=== PATIENT | male | born 1965 | race Caucasian/White ===

== ENCOUNTER 2018-05-17 16:38 | Inpatient (IN) | payer BC, SELFPAY ==
[2018-05-17] VITALS (24 sets, daily range): BP systolic 126–140; BP diastolic 81–89; PULSE 61–89; RESP 11–20; TEMP 37.4–38.3; O2SAT 91–97
[2018-05-17] MEDS: Normal Saline 1,000 ML 1000 ML IV ×2 (17:15→19:45)
[2018-05-17] MEDS: Normal Saline Flush 10 ML SYR IVP ×2 (17:15→22:03)
--- NOTE | 2018-05-17 17:16 | DI.CT_ITS ---
SYMPTOM/DIAGNOSIS: PAIN IN EPIGASTRIC AND RUQ CT ABDOMEN AND PELVIS: CT scan of the abdomen and pelvis was performed following the uneventful administration of intravenous contrast material. No priors for comparison. The visualized lung bases are free of acute infiltrates. There is diffuse decreased attenuation of the liver consistent with fatty infiltration. No suspicious hepatic mass is seen. The patient is status post cholecystectomy. No biliary ductal dilatation is present. The portal and superior mesenteric veins are patent. There is mild increased attenuation surrounding the head of the pancreas and proximal duodenum There is mild prominence of the pancreatic duct in the proximal pancreas. No pancreatic mass is seen. No peripancreatic fluid collections are appreciated. The spleen and adrenal glands are unremarkable The kidneys show normal and symmetric enhancement. There are left renal cysts. No calculi are identified. The urinary bladder is markedly distended. There is mild dilatation of the collecting system likely reflecting the enlarged urinary bladder. No definite hydronephrosis is seen. The reproductive organs are grossly unremarkable. The abdominal aorta is of normal caliber. No significant or pelvic adenopathy, ascites, or pneumoperitoneum is present. There is a moderate amount of retained stool throughout the colon. No evidence of bowel obstruction seen. No findings to suggest an acute appendicitis are present. The bones are intact. IMPRESSION: 1. Mild edema seen surrounding the pancreatic head and proximal duodenum, likely reflecting acute pancreatitis. Please correlate clinically. 2. Marked distension of the urinary bladder without orly hydronephrosis 3. Thickening of the wall of the distal esophagus. Esophagitis cannot be excluded. This may also reflect a decompressed distal esophagus. Please correlate clinically. 4. Mild prominence of the distal esophageal wall. Esophagitis vs decompressed esophagus.
--- NOTE | 2018-05-17 17:16 | DI.CT_ITS ---
SYMPTOM/DIAGNOSIS: ALTERED MENTATION CT BRAIN: Noncontrast examination. No priors. There is a normal haas/white matter differentiation. The ventricles are intact. The basilar cisterns are patent. No evidence of an acute infarct, intracranial hemorrhage, midline shift or mass effect is identified. There is mild mucosal thickening in the ethmoid air cells and sphenoid sinuses. No fluid levels are seen. The mastoid air cells are well pneumatized. The calvarium is intact. IMPRESSION: No acute intracranial process.
--- NOTE | 2018-05-17 17:19 | W.ED.GENAD ---
Discharge Plan Disposition Patient Disposition: [facility] INPATIENT Condition: Serious Discharge Details Chief Complaint: OD/Poison Clinical Impression: Acute alcohol intoxication, Acute pancreatitis Primary Care Provider: Alexis Carlos ED Provider: Hayder Larsen Home Meds and New Rx's Prescriptions: No Action zolpidem 10 MG tablet 10 mg PO HS PRN RF: 0 montelukast 10 MG tablet 10 mg PO RF: 0 testosterone cypionate 200 MG/1 ML oil 200 mg IM RF: 0 fluticasone 16 GM spray,suspension 16 gm NS RF: 0 buprenorphine-naloxone 1 EACH tablet, sublingual 1 ea Sublingual DAILY RF: 0 finasteride 5 MG tablet 5 mg PO DAILY Qty: 30 RF: 12 tamsulosin [Flomax] 0.4 MG capsule 0.8 mg PO DAILY RF: 0 pantoprazole [Protonix] 20 MG tablet,delayed release (DR/EC) 20 mg DAILY RF: 0 prednisone 20 MG tablet 60 mg PO DAILY 5 Days RF: 0 bupropion HCl [Wellbutrin XL] 150 mg Tablet Extended Release 24 Hr 150 mg PO DAILY RF: 0 Medical Decision Making 17:23 --83-year-old male with altered mental status after being found in [facility]. Arrives with ems. normothermic. Initially resistant to assessment and treatment. Now agreeable. Patient admits to consuming heavy amounts of alcohol today and notes binging recently over the past week. Suspect alcohol intoxication. No signs of trauma. Patient is tender in his upper abdomen. Consider acute surgical pathology. Unreliable exam and history given his current status. Plan to CT abdomen pelvis to assess for surgical pathology. Plan to CT head to assess for acute life-threatening hemorrhage. Will give IVF bolus, thiamine 100mg IV, and pepcid 20mg IV. 18:33 -- Labs reviewed: lipase elevated. AST and ALT elevated. I alerted hospitalist to likely admission pending CT. 20:35 --CT of the abdomen pelvis interpreted by radiology: 1. Mild edema surrounding the pancreatic head and distal duodenum, likely a mild pancreatitis. 2. Mild prominence of the urinary collecting systems in the setting of a distended urinary bladder with no orly hydronephrosis. 3. Question mild prominence of the distal esophageal wall. Decompressed distal esophagus. Could relate to a mild esophagitis especially of vomiting has been present. Patient is making urine. Will give ativan 0.5 mg IV for sleep and anxiety. Spoke with Dr. Tijerina who will admit. Care transitioned to Dr. Tijerina. HPI General Mode of arrival: EMS. Date/Time Provider Initiated Documentation: 05/17/18 16:38. Limitations to Documentation: altered mental status. Information obtained by: patient, family () and EMS. HPI Narrative: 53-year-old male with history of alcohol abuse, presents with altered mental status. History and review of systems Limited as patient is altered. Per the patient's , who called the emergency department, patient left his home to purchase alcohol this morning around 11 AM and then did not return. Patient was found altered in the [place]. He admits to consuming wine and heavy amounts today. notes that he has been binging over the past 7 days on vodka. Patient denies trauma. He denies pain. Related Data Home Medications Medication Instructions Recorded Confirmed zolpidem 10 mg PO HS PRN 10/24/14 11/29/17 buprenorphine-naloxone 1 ea SUBLINGUAL DAILY 11/04/16 05/17/18 fluticasone 16 gm NS script 11/04/16 montelukast 10 mg PO 11/04/16 testosterone cypionate 200 mg IM vial 11/04/16 finasteride 5 mg PO DAILY #30 tab-cap 12/16/16 tamsulosin [Flomax] 0.8 mg PO DAILY tab-cap 12/16/16 11/29/17 pantoprazole [Protonix] 20 mg DAILY 11/29/17 11/29/17 prednisone 60 mg PO DAILY 5 Days tab 11/29/17 bupropion HCl [Wellbutrin XL] 150 mg PO DAILY 05/17/18 05/17/18 Previous Rx's Medication Instructions Recorded prednisone 60 mg PO DAILY 5 Days tab 11/29/17 Allergies Allergy/AdvReac Type Severity Reaction Status Date / Time buspirone HCl [From BuSpar] AdvReac Intermediate Dizziness/L Unverified 12/16/16 09:34 ightheade codeine AdvReac Intermediate Nausea Unverified 12/16/16 09:34 eviromental Allergy Severe congestion Uncoded 11/14/14 07:32 General Stated Complaint: OD/Poison STEPHANIE: 2 Review of Systems Review of Systems Unobtainable due to mental status PFS Social History Smoking/Tobacco Use Status: Former Tobacco Use Exam Const General: uncooperative and no acute distress Nutritional Appearance: well nourished Orientation: alert and confused Limitations: altered mental status [facility] Head: normocephalic and atraumatic Mouth: moist mucous membranes Eyes Conjunctivae: normal conjunctivae Sclera: normal sclerae Pupils: PERRL Neck Neck: trachea midline and supple Resp Auscultation: clear to auscultation bilaterally, no rales, no rhonchi and no wheezes Cardio Jugular venous pressure: no JVD Rate: regular rate and not tachycardic Rhythm: regular rhythm GI Palpation: soft, not firm, no guarding, no masses, not rigid and tender in the epigastrum and in the LUQ Skin General skin exam: no rashes or lesions noted Neuro General: alert, awake and tone normal Extrem General: no edema Psych Speech and Movement: slurred speech Affect: labile affect Insight: poor Judgment: poor Course Temperature Source Skin 05/17/18 16:36 Oxygen Delivery Method Room Air 05/17/18 16:36 Oxygen Flow Rate 0 05/17/18 16:36 Comment 05/17/18 16:36
--- NOTE | 2018-05-17 17:25 | ED.GENADUL_ITS ---
Discharge Plan Disposition Patient Disposition: [facility] INPATIENT Condition: Serious Discharge Details Chief Complaint: OD/Poison Clinical Impression: Acute alcohol intoxication, Acute pancreatitis Primary Care Provider: Alexis Carlos ED Provider: Hayder Larsen Home Meds and New Rx's Prescriptions: No Action zolpidem 10 MG tablet 10 mg PO HS PRN RF: 0 montelukast 10 MG tablet 10 mg PO RF: 0 testosterone cypionate 200 MG/1 ML oil 200 mg IM RF: 0 fluticasone 16 GM spray,suspension 16 gm NS RF: 0 buprenorphine-naloxone 1 EACH tablet, sublingual 1 ea Sublingual DAILY RF: 0 finasteride 5 MG tablet 5 mg PO DAILY Qty: 30 RF: 12 tamsulosin [Flomax] 0.4 MG capsule 0.8 mg PO DAILY RF: 0 pantoprazole [Protonix] 20 MG tablet,delayed release (DR/EC) 20 mg DAILY RF: 0 prednisone 20 MG tablet 60 mg PO DAILY 5 Days RF: 0 bupropion HCl [Wellbutrin XL] 150 mg Tablet Extended Release 24 Hr 150 mg PO DAILY RF: 0 Medical Decision Making 17:23 --83-year-old male with altered mental status after being found in [facility]. Arrives with ems. normothermic. Initially resistant to assessment and treatment. Now agreeable. Patient admits to consuming heavy amounts of alcohol today and notes binging recently over the past week. Suspect alcohol intoxication. No signs of trauma. Patient is tender in his upper abdomen. Consider acute surgical pathology. Unreliable exam and history given his current status. Plan to CT abdomen pelvis to assess for surgical pathology. Plan to CT head to assess for acute life-threatening hemorrhage. Will give IVF bolus, thiamine 100mg IV, and pepcid 20mg IV. 18:33 -- Labs reviewed: lipase elevated. AST and ALT elevated. I alerted hospitalist to likely admission pending CT. 20:35 --CT of the abdomen pelvis interpreted by radiology: 1. Mild edema surrounding the pancreatic head and distal duodenum, likely a mild pancreatitis. 2. Mild prominence of the urinary collecting systems in the setting of a distended urinary bladder with no orly hydronephrosis. 3. Question mild prominence of the distal esophageal wall. Decompressed distal esophagus. Could relate to a mild esophagitis especially of vomiting has been present. Patient is making urine. Will give ativan 0.5 mg IV for sleep and anxiety. Spoke with Dr. Tijerina who will admit. Care transitioned to Dr. Tijerina. HPI General Mode of arrival: EMS . Date/Time Provider Initiated Documentation: 05/17/18 16:38 . Limitations to Documentation: altered mental status . Information obtained by: patient, family () and EMS . HPI Narrative: 53-year-old male with history of alcohol abuse, presents with altered mental status. History and review of systems Limited as patient is altered. Per the patient's , who called the emergency department, patient left his home to purchase alcohol this morning around 11 AM and then did not return. Patient was found altered in the [place]. He admits to consuming wine and heavy amounts today. notes that he has been binging over the past 7 days on vodka. Patient denies trauma. He denies pain. Related Data Home Medications Medication Instructions Recorded Confirmed zolpidem 10 mg PO HS PRN 10/24/14 11/29/17 buprenorphine-naloxone 1 ea SUBLINGUAL DAILY 11/04/16 05/17/18 fluticasone 16 gm NS script 11/04/16 montelukast 10 mg PO 11/04/16 testosterone cypionate 200 mg IM vial 11/04/16 finasteride 5 mg PO DAILY #30 tab-cap 12/16/16 tamsulosin [Flomax] 0.8 mg PO DAILY tab-cap 12/16/16 11/29/17 pantoprazole [Protonix] 20 mg DAILY 11/29/17 11/29/17 prednisone 60 mg PO DAILY 5 Days tab 11/29/17 bupropion HCl [Wellbutrin XL] 150 mg PO DAILY 05/17/18 05/17/18 Previous Rx's Medication Instructions Recorded prednisone 60 mg PO DAILY 5 Days tab 11/29/17 Allergies Allergy/AdvReac Type Severity Reaction Status Date / Time buspirone HCl [From BuSpar] AdvReac Intermediate Dizziness/L Unverified 09:34 ightheade codeine AdvReac Intermediate Nausea Unverified 12/16/16 09:34 eviromental Allergy Severe congestion Uncoded 11/14/14 07:32 General Stated Complaint: OD/Poison STEPHANIE: 2 Review of Systems Review of Systems Unobtainable due to mental status PFS Social History Smoking/Tobacco Use Status: Former Tobacco Use Exam Const General: uncooperative and no acute distress Nutritional Appearance: well nourished Orientation: alert and confused Limitations: altered mental status [facility] Head: normocephalic and atraumatic Mouth: moist mucous membranes Eyes Conjunctivae: normal conjunctivae Sclera: normal sclerae Pupils: PERRL Neck Neck: trachea midline and supple Resp Auscultation: clear to auscultation bilaterally, no rales, no rhonchi and no wheezes Cardio Jugular venous pressure: no JVD Rate: regular rate and not tachycardic Rhythm: regular rhythm GI Palpation: soft, not firm, no guarding, no masses, not rigid and tender in the epigastrum and in the LUQ Skin General skin exam: no rashes or lesions noted Neuro General: alert, awake and tone normal Extrem General: no edema Psych Speech and Movement: slurred speech Affect: labile affect Insight: poor Judgment: poor Course Temperature Source Skin 05/17/18 16:36 Oxygen Delivery Method Room Air 05/17/18 16:36 Oxygen Flow Rate 0 05/17/18 16:36 Comment 05/17/18 16:36
[2018-05-17] MEDS: Thiamine 200 MG/2 ML VIAL 100 MG IV (17:26)
[2018-05-17 17:28] LABS: Abs Immature Grans 0.02 k/cumm (0.0-0.09); Absolute Basophil Count 0.02 k/cumm (0.0-0.2); Absolute Eosinophil Count 0.05 k/cumm (0.0-0.7); Absolute Lymphocyte Count 2.33 k/cumm (1.2-3.4); Absolute Monocyte Count 0.51 k/cumm (0.11-0.7); Absolute Neutrophil Count 4.83 k/cumm (1.2-6.7); Basophils % 0.3; Eosinophils % 0.6; HCT 47.9 % (40.0-50.0); HGB 16.3 g/dL (13.5-17.5); Immature Grans % 0.3; Mean Corpuscular Hemoglobin 30.5 pg (27.0-33.0); Mean Corpuscular Volume 89.7 fL (80-95); Mean Platelet Volume 10.3 fL (8.0-11.0); Monocytes % 6.6; Neutrophils % 62.2; Platelet Count 233 x1000/uL (130-400); RBC 5.34 m/cumm (4.50-6.00); RBC Distribution Width 14.2 % (11.8-14.1); White Blood Cell Count 7.76 k/cumm (4.4-10.8)
[2018-05-17] MEDS: FAMOTIDINE 20 MG/50 ML BAG 100 MG IVPB (17:32)
[2018-05-17 18:02] LABS: ALT 240 U/L (12-78); AST 544 U/L (15-37); Albumin 3.7 g/dL (3.4-5.0); Alkaline Phosphatase 145 U/L (46-116); Anion Gap 12.8 mmol/L (3-11); BUN 10 mg/dL (7-18); Bilirubin, Total 0.7 mg/dL (0.2-1.0); CO2 26.2 mmol/L (21.0-32.0); CREATININE 0.79 mg/dL (0.70-1.30); Calcium 8.7 mg/dL (8.5-10.1); Chloride 103 mmol/L (98-107); Glucose 106 mg/dL (70-100); Potassium 4.3 mmol/L (3.5-5.1); Sodium 142 mmol/L (136-145); TSH (W/Ref FT4) 1.63 uIU/mL (0.358-3.74); Total Protein 7.7 g/dL (6.4-8.2)
[2018-05-17 18:06] LABS: Lipase 5671 U/L (73-393)
[2018-05-17 18:31] LABS: Bilirubin Negative (Negative); Blood Small (Negative); Clarity Clear; Glucose Negative (Negative); Ketones Negative (Negative); Leukocyte Esterase Negative (Negative); Nitrite Negative (Negative); Specific Gravity <= 1.005 (1.005-1.025)
[2018-05-17 18:40] LABS: Bacteria Negative HPF (Negative); C & S Indicated? No; Casts Negative LPF (Negative); Crystals Negative HPF (Negative); Epithelial Cells Negative HPF (Negative); Mucus Negative (Negative); Other Cells Negative (Negative); RBC 0-2 (0-2); WBC Negative HPF (0-5)
[2018-05-17 18:48] LABS: Tricyclic Antidepressants Negative (Negative)
[2018-05-17 18:51] LABS: *AMPHETAMINES SCREEN URINE Negative (Negative); *BARBITURATES SCREEN URINE Negative (Negative); *BENZODIAZEPINES SCREEN URINE Negative (Negative); Cannabinoids THC Negative (Negative); Cocaine Screen,Urine Negative (Negative); METHADONE URINE SCREEN Negative (Negative); OPIATES URINE SCREEN Negative (Negative)
--- NOTE | 2018-05-17 19:44 | DI.VRAD_ITS ---
EXAM: CT Head Without Intravenous Contrast EXAM DATE/TIME: 05/17/2018 5:18 PM CLINICAL HISTORY: 53 years old, male; Signs and symptoms; Altered mental status/memory loss; Patient HX: Altered mentation TECHNIQUE: Axial computed tomography images of the head/brain without intravenous contrast. Coronal and sagittal reformatted images were created and reviewed. COMPARISON: No relevant prior studies available. FINDINGS: Brain: No hemorrhage. No significant white matter disease. No edema. Ventricles: No ventriculomegaly. Bones/joints: No acute fracture. Sinuses: Minimal mucosal thickening in the ethmoid air cells. Mastoid air cells: No mastoid effusion. Soft tissues: No suspicious lesions. IMPRESSION: 1. No acute intracranial findings. 2. Minimal mucosal thickening in the ethmoid air cells. Dictated and Authenticated by: Chelsy Cha MD. Ordering:TONY GRANT MD
--- NOTE | 2018-05-17 19:50 | DI.VRAD_ITS ---
EXAM: CT Abdomen and Pelvis With Intravenous Contrast EXAM DATE/TIME: 05/17/2018 5:18 PM CLINICAL HISTORY: 53 years old, male; Pain; Abdominal pain; Localized; Right upper quadrant (ruq); Patient HX: Pain in epigastric and ruq TECHNIQUE: Axial computed tomography images of the abdomen and pelvis with intravenous contrast. Coronal and sagittal reformatted images were created and reviewed. COMPARISON: No relevant prior studies available. FINDINGS: Lower thorax: Question mild prominence of the distal esophageal wall. Decompressed distal esophagus. ABDOMEN: Liver: Hepatic hypodensity, too small to characterize, likely a cyst. No hepatic masses. Mildly fatty liver is suggested. Gallbladder and bile ducts: Cholecystectomy. Pancreas: Mild edema surrounding the pancreatic head and distal duodenum. Minimal prominence of the pancreatic duct in the proximal pancreas. No pancreatic masses are seen. No peripancreatic collections. Spleen: No splenomegaly or focal lesions. Adrenals: No mass. Kidneys and ureters: Benign-appearing left renal cysts. No renal masses or hydronephrosis bilaterally. Mild prominence of the urinary collecting systems in the setting of a distended urinary bladder with no orly hydronephrosis. Stomach and bowel: Mild edema surrounding the distal duodenum as described above. No pathologic duodenal dilation. No significant duodenal wall thickening. No focal pathology in the small bowel. No acute pathology in the colon. Appendix: No evidence of appendicitis. Retroperitoneal space: Minimal edema layers along the upper retroperitoneum. PELVIS: Bladder: The urinary bladder is distended. Reproductive: Unremarkable as visualized. ABDOMEN and PELVIS: Intraperitoneal space: Normal. No free air. No significant fluid collection. Bones/joints: Degenerative changes in the spine. Soft tissues: No suspicious lesions. Vasculature: Normal. No abdominal aortic aneurysm. Lymph nodes: Normal. No enlarged lymph nodes. IMPRESSION: 1. Mild edema surrounding the pancreatic head and distal duodenum, likely a mild pancreatitis. 2. Mild prominence of the urinary collecting systems in the setting of a distended urinary bladder with no orly hydronephrosis. 3. Question mild prominence of the distal esophageal wall. Decompressed distal esophagus. Could relate to a mild esophagitis especially of vomiting has been present. Dictated and Authenticated by: Chelsy Cha MD. Ordering:TONY GRANT MD
--- NOTE | 2018-05-17 20:52 | W.PM.HP.N ---
Date of service: 05/17/18 Time of Service: 20:53 Assessment and Plan (1) Acute alcoholic pancreatitis: Current visit: Yes Status: Acute Keep NPO; give generous iv fluids; begin CIWA protocol to monitor and treat for any signs of alcohol withdrawal; give iv thiamine/MVS via banana bag; give parenteral antiemetics and analgesics; treat w/ iv PPI (he has hx of GERD and CT of abdomen suggested duodenitis and esophagitis; patient had been trying to remain intoxicated to kill his epigastric abdominal pain; if his pain does not resolve then he may need an EGD to rule out PUD. monitor daily labs including CMP, lipase and CBC. (2) Transaminitis: Current visit: Yes Status: Acute treat pancreatitis as above, monitor LFT daily until normal, avoid hepatotoxins History of Present Illness Chief Complaint: intoxicated, found in [place] Narrative: 53 year old male w/ PMH of alcohol and narcotic abuse who has been on suboxone therapy has been drinking heavily for the past week according to the emergency room staff who obtained his history from his . The patient left home around 11 a.m. to purchase alcohol but did not return. When she went to find him [facility] with altered mental status and suspected of being intoxicated. He was brought by EMS to the emergency room at [facility] where workup revealed that he has acute pancreatitis w/ lipase of 5671 and acute alcoholic transaminitis w/ An AST of 544 and an ALT of 240 and alkaline phosphatase of 145. He has a mildly elevated anion gap of 12.8 and is acutely intoxicated with a blood alcohol level of 382. Rest of his urine toxicology screen was negative. His urinalysis was unremarkable. CT of his head without contrast showed no acute intracranial findings. CT of his abdomen and pelvis with IV contrast demonstrate mild edema surrounding the pancreatic head and distal duodenum consistent with pancreatitis. Mild prominence of his urinary collecting system with a distended urinary bladder but no orly hydronephrosis. Questionable mild prominence of the distal esophageal wall possibly due to mild esophagitis. Treatment included 100 mg of thiamine IV as well as IV fluid boluses of normal saline times 2 L as well as 20 mg of IV Pepcid.Patient is now admitted to the medical/surgical floor on telemetry for treatment of acute alcoholic pancreatitis and transaminitis as well as acute alcohol intoxication. He will be monitored for signs of alcohol withdrawal and treated appropriately according CIWA protocol per [facility] alcohol withdrawal protocol. Review of Systems Constitutional Reports system reviewed and no additional complaints, except as docu Cardiovascular Reports system reviewed and no additional complaints, except as docu Respiratory Reports system reviewed and no additional complaints, except as docu Gastrointestinal Reports as per HPI Genitourinary Reports system reviewed and no additional complaints, except as docu Musculoskeletal Reports system reviewed and no additional complaints, except as docu Neurologic Reports system reviewed and no additional complaints, except as docu Psychiatric Reports anxiety and Reports irritability Hematologic/Lymphatic Reports system reviewed and no additional complaints, except as docu [facility] Medical History GERD (gastroesophageal reflux disease) (Chronic) Acute alcoholic pancreatitis (Acute ~05/2018) Alcoholism (Chronic) History of narcotic addiction (Chronic) Social History marital status: current occupational status: employed 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, [employer] Smoking/Tobacco Use Status: Former Tobacco Use alcohol intake: current alcohol intake frequency: 3 or more drinks per day Alcohol type: wine and hard liquor details: prior abstinence x 3 yrs; last time he was abstinent was 2 yr ago Surgical History History of cholecystectomy (Resolved) Meds Home Medications Medication Instructions Recorded Confirmed Type zolpidem 10 mg PO HS PRN 10/24/14 11/29/17 History fluticasone 16 gm NS script 11/04/16 History montelukast 10 mg PO 11/04/16 History testosterone cypionate 200 mg IM vial 11/04/16 History finasteride 5 mg PO DAILY #30 tab-cap 12/16/16 History tamsulosin [Flomax] 0.8 mg PO DAILY tab-cap 12/16/16 11/29/17 History pantoprazole [Protonix] 20 mg DAILY 11/29/17 11/29/17 History prednisone 60 mg PO DAILY 5 Days tab 11/29/17 Rx bupropion HCl [Wellbutrin XL] 150 mg PO DAILY 05/17/18 05/17/18 History buprenorphine-naloxone [Suboxone] 8 tab SUBLINGUAL DAILY 05/18/18 05/18/18 History Allergies Allergy/AdvReac Type Severity Reaction Status Date / Time buspirone HCl [From BuSpar] AdvReac Intermediate Dizziness/L Unverified 12/16/16 09:34 ightheade codeine AdvReac Intermediate Nausea Unverified 12/16/16 09:34 eviromental Allergy Severe congestion Uncoded 11/14/14 07:32 Exam Const General: cooperative, well developed and intoxicated appearing Nutritional Appearance: obese Orientation: alert, awake and oriented x3 HENMT Head: normal to inspection, normocephalic and atraumatic Ears: hearing grossly normal bilaterally General nose exam: external nose normal Face and sinus: normal facial exam Eyes General: appearance normal, both eyes and all related structures Periorbital: periorbital findings normal Eyelids: eyelids normal Sclera: sclerae normal Cornea: corneas normal Pupils: PERRL EOM: EOM intact bilaterally Neck Neck: normal visual inspection, full ROM, no lymphadenopathy, trachea midline and supple Carotids: normal carotid upstroke Lymphatic: no lymphadenopathy noted Resp Effort & Inspection: normal respiratory effort and able to speak in complete sentences Auscultation: clear to auscultation bilaterally Cardio Jugular venous pressure: no JVD Palpation: normal PMI Rate: regular rate Rhythm: regular rhythm Heart Sounds: S1 normal, S2 normal, normal, physiologic split S2, no gallops, no murmurs and no rubs Bruits: no abdominal aortic bruits and no carotid bruits GI Inspection: normal to inspection and obesity Palpation: soft and tender in the epigastrum, in the LUQ and in the RUQ Percussion: normal to percussion Auscultation: normal bowel sounds Skin General skin exam: no rashes or lesions noted Trauma: no lacerations or abrasions Wounds: no wounds Neuro General: alert, awake, oriented x3, moves all extremities, normal light touch, pain and propioception and no focal motor deficits Cognition: normal cognition Speech: speech normal Motor: muscle tone normal throughout, strength 5/5 throughout and no movement abnormalities noted Sensory Exam: no sensory deficits noted Extrem General: normal to inspection, full ROM, normal capillary refill, no joint enlargement, no clubbing, cyanosis or edema and no pedal edema Psych Appearance: disheveled Mental Status: mental status grossly normal Speech and Movement: speech and movement normal Mood: anxious mood Affect: sad Attitude: cooperative Thought Process: normal Thought Content: normal Insight: insight good Judgment: fair Results Imaging Abdomen CT scan report/results: report reviewed (MPRESSION: 1. Mild edema surrounding the pancreatic head and distal duodenum, likely a mild pancreatitis. 2. Mild prominence of the urinary collecting systems in the setting of a distended urinary bladder with no orly hydronephrosis. 3. Question mild prominence of the distal esophageal wall. D) Imaging Studies: Non-contrast CT scan of head showed no acute intracranial findings Labs : 05/18/18 06:29 05/18/18 06:29 Laboratory Results - last 24 hr 05/17/18 05/17/18 05/17/18 17:15 17:15 17:15 WBC 7.76 RBC 5.34 Hgb 16.3 Hct 47.9 MCV 89.7 MCH 30.5 MCHC 34.0 RDW 14.2 H Plt Count 233 MPV 10.3 Immature Gran % 0.3 Neutrophils % 62.2 Lymphocytes % 30.0 Monocytes % 6.6 Eosinophils % 0.6 Basophils % 0.3 Absolute Neutrophils 4.83 Absolute Lymphocytes 2.33 Absolute Monocytes 0.51 Absolute Eosinophils 0.05 Absolute Basophils 0.02 Sodium 142 Potassium 4.3 Chloride 103 Carbon Dioxide 26.2 Anion Gap 12.8 H BUN 10 Creatinine 0.79 Estimated GFR/1.73 m2 >= 60.00 Glucose 106 H Calcium 8.7 Total Bilirubin 0.7 AST 544 H ALT 240 H Alkaline Phosphatase 145 H Total Protein 7.7 Albumin 3.7 Lipase 5671 H TSH 1.63 Urine Color Urine Clarity Urine pH Ur Specific [place] Urine Protein Urine Ketones Urine Blood Urine Nitrite Urine Bilirubin Urine Urobilinogen Ur Leukocyte Esterase Urine RBC Urine WBC Ur Epithelial Cells Urine Crystals Urine Bacteria Urine Casts Urine Mucus Urine Other Ur Culture Indicated? Urine Glucose Urine Opiates Screen Urine Methadone Screen Ur Barbiturates Screen Ur Tricyclics Screen Ur Amphetamines Screen U Benzodiazepines Scrn Urine Cocaine Screen Ur THC Screen Ethyl Alcohol 382.0 05/17/18 05/17/18 17:45 17:45 WBC RBC Hgb Hct MCV MCH MCHC RDW Plt Count MPV Immature Gran % Neutrophils % Lymphocytes % Monocytes % Eosinophils % Basophils % Absolute Neutrophils Absolute Lymphocytes Absolute Monocytes Absolute Eosinophils Absolute Basophils Sodium Potassium Chloride Carbon Dioxide Anion Gap BUN Creatinine Estimated GFR/1.73 m2 Glucose Calcium Total Bilirubin AST ALT Alkaline Phosphatase Total Protein Albumin Lipase TSH Urine Color Yellow Urine Clarity Clear Urine pH 6.0 Ur Specific [place] <= 1.005 Urine Protein Negative Urine Ketones Negative Urine Blood Small H Urine Nitrite Negative Urine Bilirubin Negative Urine Urobilinogen 1.0 H Ur Leukocyte Esterase Negative Urine RBC 0-2 Urine WBC Negative Ur Epithelial Cells Negative Urine Crystals Negative Urine Bacteria Negative Urine Casts Negative Urine Mucus Negative Urine Other Negative Ur Culture Indicated? No Urine Glucose Negative Urine Opiates Screen Negative Urine Methadone Screen Negative Ur Barbiturates Screen Negative Ur Tricyclics Screen Negative Ur Amphetamines Screen Negative U Benzodiazepines Scrn Negative Urine Cocaine Screen Negative Ur THC Screen Negative Ethyl Alcohol Last Vital Signs Temp 37.8 C H 05/17/18 19:19 Pulse 73 05/17/18 19:31 Resp 18 05/17/18 20:20 BP 134/83 05/17/18 19:31 Pulse Ox 97 05/17/18 20:00
[2018-05-17] MEDS: LORazepam 2 MG/ML VIAL 0.5 MG IVP (21:37)
[2018-05-17] MEDS: Lactated Ringers 1,000 ML 250 ML IV (21:39)
[2018-05-17] MEDS: MORPHine 10 MG/ML VIAL IVP (22:03)
[2018-05-17] MEDS: Pantoprazole 40 MG VIAL IVP (22:04)
[2018-05-17] MEDS: Enoxaparin 40 MG/0.4 ML SYR SC (22:04)
[2018-05-17 22:10] LABS: Troponin I < 0.02 ng/mL (0.00-0.06)
[2018-05-17] MEDS: LORazepam 1 MG TAB PO/SL (22:51)
[2018-05-18] VITALS (41 sets, daily range): BP systolic 111–146; BP diastolic 62–99; PULSE 56–89; RESP 14–26; TEMP 36–37.8; O2SAT 95–97
[2018-05-18] MEDS: Normal Saline Flush 10 ML SYR IVP ×9 (00:13→22:05)
[2018-05-18 01:00] LABS: Troponin I < 0.02 ng/mL (0.00-0.06)
[2018-05-18] MEDS: Lactated Ringers 1,000 ML 250 ML IV ×2 (01:49→06:00)
[2018-05-18] MEDS: LORazepam 1 MG TAB PO/SL ×5 (03:20→20:01)
[2018-05-18] MEDS: MORPHine 10 MG/ML VIAL IVP (05:59)
[2018-05-18 07:09] LABS: Abs Immature Grans 0.01 k/cumm (0.0-0.09); Absolute Basophil Count 0.01 k/cumm (0.0-0.2); Absolute Eosinophil Count 0.07 k/cumm (0.0-0.7); Absolute Lymphocyte Count 1.43 k/cumm (1.2-3.4); Absolute Monocyte Count 0.27 k/cumm (0.11-0.7); Absolute Neutrophil Count 4.01 k/cumm (1.2-6.7); Basophils % 0.2; Eosinophils % 1.2; HGB 13.2 g/dL (13.5-17.5); Immature Grans % 0.2; Lymphocytes % 24.7; Mean Corp. HGB Concentration 33.8 g/dL (32.0-36.0); Mean Corpuscular Hemoglobin 31.1 pg (27.0-33.0); Mean Corpuscular Volume 91.8 fL (80-95); Mean Platelet Volume 10.5 fL (8.0-11.0); Monocytes % 4.7; Platelet Count 155 x1000/uL (130-400); RBC 4.25 m/cumm (4.50-6.00)
[2018-05-18 07:24] LABS: ETHANOL BLOOD 28.9 mg/dL (<3)
[2018-05-18 07:27] LABS: ALT 141 U/L (12-78); AST 114 U/L (15-37); Albumin 3.2 g/dL (3.4-5.0); Alkaline Phosphatase 100 U/L (46-116); Anion Gap 13.4 mmol/L (3-11); BUN 10 mg/dL (7-18); Bilirubin, Total 1.2 mg/dL (0.2-1.0); CO2 25.6 mmol/L (21.0-32.0); CREATININE 0.85 mg/dL (0.70-1.30); Calcium 7.8 mg/dL (8.5-10.1); Chloride 104 mmol/L (98-107); Glucose 71 mg/dL (70-100); Lipase 925 U/L (73-393); Magnesium 1.4 mg/dL (1.8-2.4); Potassium 3.8 mmol/L (3.5-5.1); Sodium 143 mmol/L (136-145); Troponin I < 0.02 ng/mL (0.00-0.06)
[2018-05-18 07:28] LABS: PHOSPHORUS 3.7 mg/dL (2.6-4.7)
[2018-05-18 07:57] LABS: Prothrombin Time 9.6 sec (9.3-10.8)
--- NOTE | 2018-05-18 09:52 | PHARADMIT ---
Addendum entered by Rehana Collins 05/25/18 16:44: Pharmacy Note Subjective no longer on CIWA Objective BP-144/94 other VS okay Assessment oxycodone and lorazepam discontinued, PO hydromorphone added Q2H PRN has been taking both IV and PO hydromorphone Plan continue to watch VS, labs and for med changes Original Note: Addendum entered by Jj Ferguson III 05/24/18 11:58: Pharmacy Note Subjective CIWA: 1-2 Pain:5/10 Epigastric pain continues, eating minimally. Advancing diet. MD reduced Dilaudid IV, & increasdd Oxycodone. Objective BP-168/104 I&O (- 5 Liters/36hrs) Wgt- 86.6 kg No Labs, Assessment Oxycodone to 20mg q4h prn, Dilaudid to 1mg IV .q90min prn Plan Patient to transfer to Med/Surg Original Note: Addendum entered by Jj Ferguson III 05/23/18 13:17: Pharmacy Note Subjective CIWA: 3-12 MD lowered Oxazepam to 10mg po BID. MD believes opioid withdrawal is part of ongoing abdominal pain. Diet advanced. Has some urinary obstruction,,on Flomax Objective VS-OK BP-145/93 Pain: 09/20 K+3.9 Mag-1.9 SCr-1.18 H&H-up Plts-143 Had liquid BM Assessment Lovenox held due to low Plts, Oxycodone & Dilaudid IVP for pain control. Banana bag dc'd changed to oral meds. Using TEDS & SCDs Plan Patient is wavering regarding inpatient substance abuse rehab. Original Note: Addendum entered by Jj Ferguson III 05/22/18 12:12: Pharmacy Note Subjective CIWA: 2-7, Complains of pain, wants his Suboxone Objective BP-140/108 Pain:10 Plts-122, Lytes, WBC-OK SCr-1.04 H&H-12.6/38.3 wgt-89.6 kg BM 05/21 Assessment Low PLts, Lovenox DC'd, Banana bag continues Plan changed rom Med/Surg overlfw o ICU admission. sent referral to [facility] Original Note: Addendum entered by Harper Suresh 05/21/18 10:42: Pharmacy Note Subjective pt confused upon awakening, told nurse he was leaving AMA Objective CIWA 17 this AM, AST normalized, ALT coming down Assessment Banana bag continues Plan Watch Plts, Waiting for withdrawal to wane. Original Note: Addendum entered by Jj Ferguson III 05/20/18 11:07: Pharmacy Note Subjective Patient actively undergoing ETOH withdrawal & possibly Suboxone withdrawal. MD has dc'd Morphine and replace it with Hydromorphone 1mg IV q2h prn. Nurse noted patient agitated in morning meeting. Objective CIWA-19 BP-138/91 Pain:8/10 Lytes, SCr, H&H,WBC-OK Plts-127 Wgt-89.1kg Assessment Banana Bag continues. Has Toradol IV fr additional pain control. Plan Watch Plts, Waiting for withdrawal to wane. Original Note: Addendum entered by Jj Ferguson III 05/19/18 16:45: Pharmacy Note Subjective MD notes patient is clincally worse. Pancreatitis with Alcoholic hepatitis. Epigastric pain, NPO. Objective BP-140/95 CIWA-12 Pain:7/10 SCr- 0.87 Had BM today. Assessment Suboxone on hold while on Morphine. Plan Patient will require Inpatient substance abuse Rehab upon discharge Original Note: Admission Pharmacy Clinical Review ACUTE PANCREATITIS, ACUTE ALCOHOL INTOXICATION Code Status Full Code Current Weight 90.2 kg Renally Cleared and Narrow Therapeutic Index Meds CRCL ~96ML/MIN QTc Value / Action Taken QTC 425 BP Control, Fever 111/65 MAX TEMP 38.3 NOW 37.8 Electrolytes reviewed MAG 1.4(4G MAG IV ORDERED) DVT Prophylaxis ENOXAPARIN Opiate Usage / Scheduled Bowel Regimen Ordered PRN/NO Plt/SCr for Heparin / Enoxaparin 155/0.85 INR for Warfarin 1.0 H/H stable, WBC/Bands 13.2/39.0 WBC 5.80 Antibiotic appropriateness NA Cultures and Sensitivities NA Surgical ABX d/c within 24 hr NA DM control / Insulin Dosing NA Heart Failure (Check EF%) (ALYSE's, B-Block, Diuretics) NA IV to PO Switch Home Meds Reviewed Home Meds Not Ordered zolpidem 10 mg PO HS PRN 10/24/14 [History Confirmed 05/18/18] fluticasone 16 gm NS script 11/04/16 [History] montelukast 10 mg PO 11/04/16 [History] testosterone cypionate 200 mg IM vial 11/04/16 [History] finasteride 5 mg PO DAILY #30 tab-cap 12/16/16 [History] tamsulosin [Flomax] 0.8 mg PO DAILY tab-cap 12/16/16 prednisone 60 mg PO DAILY 5 Days tab 11/29/17 [Rx] bupropion HCl [Wellbutrin XL] 150 mg PO DAILY 05/17/18 buprenorphine-naloxone [Suboxone] 8 tab SUBLINGUAL DAILY 05/18/18 Comments CIWA ORDERED, BANANA BAG DAILY
[2018-05-18] MEDS: MAGNESIUM SULFATE 4 GM/100 ML BAG IVPB (10:06)
--- NOTE | 2018-05-18 11:50 | PDOC.CMIN ---
- If Service Date Differs Date of service: 05/18/18 Time of Service: 11:51 Care Management Initial Assess REASON FOR HOSPITALIZATION:: Acute pancreatitis, acute etoh withdrawal PAST MEDICAL HISTORY/PAST SURGICAL HISTORY:: Alcoholism, substance abuse, GERD. Surgical history cholecystectomy. 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 He has two grown daughter one lives in [place] the other recently moved to [place]. Danie identifies his support network as his spouse Melody, therapist Danie Gama, and as his primary care provider. He states he has a sponser through AA which he has not reached out to. He has been to inpatient rehab in the past for etoh. CURRENT FUNCTIONAL STATUS:: Danie is engaged during assessment. He states that this bout of pancreatitis has scared him and he would like to stop using alcohol. He would like resources r/t inpatient rehab however would like to only spend a week. He states that he has done this before and is not sure if he will learn anything he new. He states his is telling him he has to go to a rehab for detox. CM reviewed eco map with Danie and he is able to identify community supports. He does have a new therpaist, he feels supported by his primary care, he is attempting to obtain medical cannabis for PTSD. Danie is able to identify his resources he is able to attend an AA meeting. CM did review the importance of connecting with a sponser he can build a support network with. ADVANCE DIRECTIVES:: On file at [facility] Has patient been provided with information about the portal?: Yes Did the patient sign up for the portal?: No CODE STATUS:: Full Code INSURANCE COVERAGE / FINANCIAL ISSUES:: BCBS CURRENT HOME/COMMUNITY SERVICES/EQUIPMENT:: Therapist in the community. PRIMARY CARE PHYSICIAN:: POTENTIAL DISCHARGE NEEDS:: Follow up appointment with and referral to resources in the community for substance abuse support. CM encouraged the patient to outreach his sponser and set up appointment with is therapist as outpaitnet. PATIENT/FAMILY EDUCATION NEEDS:: Discharge education, limitations and follow up plan of care including ask me three education, and self management. ANTICIPATED BARRIERS TO DISCHARGE:: None noted at this time. TRANSPORTATION:: Transportation home with spouse at time of discharge. PLAN:: Danie is currently receiving IV fluids, and IV pain control. He is currently being assessed for alcohol withdrawal and being cared for in the ICU. He will return home when medically ready per provider with outpatient supports.
--- NOTE | 2018-05-18 12:43 | INITIAL_ITS ---
- If Service Date Differs Date of service: 05/18/18 Time of Service: 11:51 Care Management Initial Assess REASON FOR HOSPITALIZATION:: Acute pancreatitis, acute etoh withdrawal PAST MEDICAL HISTORY/PAST SURGICAL HISTORY:: Alcoholism, substance abuse, GERD. Surgical history cholecystectomy. 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. He has two grown daughter one lives in [place] the other recently moved to [place]. Danie identifies his support network as his spouse Melody, therapist Danie Gama, and as his primary care provider. He states he has a sponser through AA which he has not reached out to. He has been to inpatient rehab in the past for etoh. CURRENT FUNCTIONAL STATUS:: Danie is engaged during assessment. He states that this bout of pancreatitis has scared him and he would like to stop using alcohol. He would like resources r/t inpatient rehab however would like to only spend a week. He states that he has done this before and is not sure if he will learn anything he new. He states his is telling him he has to go to a rehab for detox. CM reviewed eco map with Danie and he is able to identify community supports. He does have a new therpaist, he feels supported by his primary care, he is attempting to obtain medical cannabis for PTSD. Danie is able to identify his resources he is able to attend an AA meeting. CM did review the importance of connecting with a sponser he can build a support network with. ADVANCE DIRECTIVES:: On file at [facility] Has patient been provided with information about the portal?: Yes Did the patient sign up for the portal?: No CODE STATUS:: Full Code INSURANCE COVERAGE / FINANCIAL ISSUES:: BCBS CURRENT HOME/COMMUNITY SERVICES/EQUIPMENT:: Therapist in the community. PRIMARY CARE PHYSICIAN:: POTENTIAL DISCHARGE NEEDS:: Follow up appointment with and referral to resources in the community for substance abuse support. CM encouraged the patient to outreach his sponser and set up appointment with is therapist as outpaitnet. PATIENT/FAMILY EDUCATION NEEDS:: Discharge education, limitations and follow up plan of care including ask me three education, and self management. ANTICIPATED BARRIERS TO DISCHARGE:: None noted at this time. TRANSPORTATION:: Transportation home with spouse at time of discharge. PLAN:: Danie is currently receiving IV fluids, and IV pain control. He is currently being assessed for alcohol withdrawal and being cared for in the ICU. He will return home when medically ready per provider with outpatient supports.
[2018-05-18] MEDS: buPROPion-XL 150 MG TABCR PO (15:57)
--- NOTE | 2018-05-18 16:00 | W.PM.PROGNOT ---
Date of Service Date of service: 05/18/18 Time of Service: 14:00 Assessment and Plan (1) Acute alcoholic pancreatitis: Current visit: Yes Status: Acute Already clinically improving. Trial clear liquids. I have made morphine 4 mg IV Q2 hrs prn rather than 4 hrs. If clears make the pain worse, the patient will let us know. (2) Alcoholic hepatitis: Current visit: Yes Status: Acute Mild (Discriminant function score 3), prognosis good. Transaminitis could also be due to pancreatitis. I counselled the patient that he absolutely must stop drinking. No role for prednisolone at this point. (3) History of narcotic addiction: Current visit: Yes Status: Chronic Suboxone on hold while the patient is on morphine. (4) Alcoholism: Current visit: Yes Status: Chronic Patient is considering substance abuse rehab. On CIWA/vitamins/thiamine here, being monitored for withdrawal. (5) GERD (gastroesophageal reflux disease): Current visit: Yes Status: Chronic PPI (6) Urinary retention: Current visit: Yes Status: Acute PVRs x 24 hours (7) Discharge planning issues: Current visit: Yes Status: Acute Patient is considering inpatient substance abuse rehab (8) DVT prophylaxis: Current visit: Yes Status: Acute lovenox Subjective Interval history since last seen: The patient is hungry and would like some soup. He continues to have significant pain, which does get better with morphine, but morphine doesn't last him the whole 4 hours. He denies any dizziness, chest pain, shortness of breath, nausea, diarrhea. He asked me to talk to his on the phone, who verbalized interest in inpatient substance abuse rehab facilities. The patient is considering it. Exam Narrative Exam Narrative: General: Very pleasant, depressed-appearing middle-aged male, sitting in bed, appears to be in pain Neurological: A&Ox3, no focal deficits, not tremulous Psychiatric: appears depressed Skin: no bruising/rashes HEENT: EOMI, MMM, no JVD Cardiovascular: RRR, no m/r/g Lungs: CTAB Gastrointestinal: abdomen soft, tender on mild palpation in epigastrium; no ascites or organomegaly Extremities: no edema/clubbing/cyanosis of BLE's Objective Objective Clinical Data: Abnormal lab results 05/17/18 05/17/18 05/17/18 Range/Units 17:15 17:15 17:15 RBC (4.50-6.00) m/cumm Hgb (13.5-17.5) g/dL Hct (40.0-50.0) % RDW 14.2 H (11.8-14.1) % Anion Gap 12.8 H (3-11) mmol/L Glucose 106 H (70-100) mg/dL Calcium (8.5-10.1) mg/dL Magnesium (1.8-2.4) mg/dL Total Bilirubin (0.2-1.0) mg/dL AST 544 H (15-37) U/L ALT 240 H (12-78) U/L Alkaline Phosphatase 145 H (46-116) U/L Total Protein (6.4-8.2) g/dL Albumin (3.4-5.0) g/dL Lipase 5671 H (73-393) U/L Urine Blood (Negative) Urine Urobilinogen (Up TO 0.2) EU/dL 05/17/18 05/18/18 05/18/18 Range/Units 17:45 06:29 06:29 RBC 4.25 L (4.50-6.00) m/cumm Hgb 13.2 L D (13.5-17.5) g/dL Hct 39.0 L (40.0-50.0) % RDW (11.8-14.1) % Anion Gap 13.4 H (3-11) mmol/L Glucose (70-100) mg/dL Calcium 7.8 L (8.5-10.1) mg/dL Magnesium 1.4 L (1.8-2.4) mg/dL Total Bilirubin 1.2 H (0.2-1.0) mg/dL AST 114 H (15-37) U/L ALT 141 H (12-78) U/L Alkaline Phosphatase (46-116) U/L Total Protein 6.0 L (6.4-8.2) g/dL Albumin 3.2 L (3.4-5.0) g/dL Lipase 925 H (73-393) U/L Urine Blood Small H (Negative) Urine Urobilinogen 1.0 H (Up TO 0.2) EU/dL Vital Signs Temperature 37.8 C H 05/18/18 07:27 Temperature Source Temporal Artery Scan 05/17/18 21:55 Pulse 64 05/18/18 10:36 Pulse Rhythm Regular 05/18/18 15:31 Pulse 69 05/18/18 14:30 Respiratory Rate 16 05/18/18 14:30 Respiratory Effort Non-Labored 05/18/18 15:31 Respiratory Depth Normal 05/18/18 15:31 Respiratory Pattern Normal 05/18/18 15:31 Blood Pressure 128/88 05/18/18 10:36 Blood Pressure Mean 97 05/18/18 10:36 Blood Pressure Position Supine 05/17/18 21:55 Pulse Oximetry 96 05/18/18 10:36 Oxygen Delivery Method Room Air 05/17/18 21:55 Oxygen Flow Rate 0 05/17/18 21:55 Pain Level 7 05/18/18 15:56 Comment 05/17/18 19:19 Intake & Output 05/17/18 05/18/18 05/18/18 23:59 11:59 23:59 Intake Total 1520 / 1520 2521.883 / 2521.883 120 / 120 Output Total 1275 / 1275 850 / 850 500 / 500 Balance 245 / 245 1671.883 / 1671.883 -380 / -380 Weight 88.8 kg 90.2 kg Intake: IV 1520 / 1520 2491.883 / 2491.883 120 / 120 Oral 30 / 30 Output: Urine 1275 / 1275 850 / 850 400 / 400 Post Void Residual 100 / 100 Other: Urine Color Light Noelle Yellow Light Noelle Urine Appearance Clear Cloudy Cloudy Urine Odor Normal Normal Comment Pt refused catheter in ED and Dr. Yanez aware per RN report. Monitor patient for adequate output Pt voided and RN scanned 10 min later with 100ml PVR Pt has been voiding in 200-300ml amounts every 1-3 hours Voiding Methods Urinal Urinal Urinal # Voids 6 Laboratory Results WBC 5.80 k/cumm (4.4-10.8) 05/18/18 06:29 RBC 4.25 m/cumm (4.50-6.00) L 05/18/18 06:29 Hgb 13.2 g/dL (13.5-17.5) L D 05/18/18 06:29 Hct 39.0 % (40.0-50.0) L 05/18/18 06:29 MCV 91.8 fL (80-95) 05/18/18 06:29 MCH 31.1 pg (27.0-33.0) 05/18/18 06: MCHC 33.8 g/dL (32.0-36.0) 05/18/18 06:29 RDW 14.0 % (11.8-14.1) 05/18/18 06:29 Plt Count 155 x1000/uL (130-400) 05/18/18 06:29 MPV 10.5 fL (8.0-11.0) 05/18/18 06:29 Immature Gran % 0.2 05/18/18 06: Neutrophils % 69.0 05/18/18 06: Lymphocytes % 24.7 05/18/18 06: Monocytes % 4.7 05/18/18 06: Eosinophils % 1.2 05/18/18 06: Basophils % 0.2 05/18/18 06:29 Absolute Neutrophils 4.01 k/cumm (1.2-6.7) 05/18/18 06:29 Absolute Lymphocytes 1.43 k/cumm (1.2-3.4) 05/18/18 06:29 Absolute Monocytes 0.27 k/cumm (0.11-0.7) 05/18/18 06:29 Absolute Eosinophils 0.07 k/cumm (0.0-0.7) 05/18/18 06:29 Absolute Basophils 0.01 k/cumm (0.0-0.2) 05/18/18 06:29 PT 9.6 sec (9.3-10.8) 05/18/18 07:38 INR 1.0 (1.0-3.5) 05/18/18 07:38 Sodium 143 mmol/L (136-145) 05/18/18 06:29 Potassium 3.8 mmol/L (3.5-5.1) 05/18/18 06:29 Chloride 104 mmol/L (98-107) 05/18/18 06:29 Carbon Dioxide 25.6 mmol/L (21.0-32.0) 05/18/18 06:29 Anion Gap 13.4 mmol/L (3-11) H 05/18/18 06:29 BUN 10 mg/dL (7-18) 05/18/18 06:29 Creatinine 0.85 mg/dL (0.70-1.30) 05/18/18 06:29 Estimated GFR/1.73 m2 >= 60.00 (mL/min/1.73m2) 05/18/18 06:29 Glucose 71 mg/dL (70-100) 05/18/18 06:29 Calcium 7.8 mg/dL (8.5-10.1) L 05/18/18 06:29 Phosphorus 3.7 mg/dL (2.6-4.7) 05/18/18 06:29 Magnesium 1.4 mg/dL (1.8-2.4) L 05/18/18 06:29 Total Bilirubin 1.2 mg/dL (0.2-1.0) H 05/18/18 06:29 AST 114 U/L (15-37) H 05/18/18 06:29 ALT 141 U/L (12-78) H 05/18/18 06:29 Alkaline Phosphatase 100 U/L (46-116) 05/18/18 06:29 Troponin I < 0.02 ng/mL (0.00-0.06) 05/18/18 06:29 Total Protein 6.0 g/dL (6.4-8.2) L 05/18/18 06:29 Albumin 3.2 g/dL (3.4-5.0) L 05/18/18 06:29 Lipase 925 U/L (73-393) H 05/18/18 06:29 TSH 1.63 uIU/mL (0.358-3.74) 05/17/18 17:15 Urine Color Yellow (Yellow) 05/17/18 17:45 Urine Clarity Clear 05/17/18 17:45 Urine pH 6.0 (5-8) 05/17/18 17:45 Ur Specific [place] <= 1.005 (1.005-1.025) 05/17/18 17:45 Urine Protein Negative mg/dL (Negative) 05/17/18 17:45 Urine Ketones Negative mg/dL (Negative) 05/17/18 17:45 Urine Blood Small (Negative) H 05/17/18 17:45 Urine Nitrite Negative (Negative) 05/17/18 17:45 Urine Bilirubin Negative (Negative) 05/17/18 17:45 Urine Urobilinogen 1.0 EU/dL (Up TO 0.2) H 05/17/18 17:45 Ur Leukocyte Esterase Negative (Negative) 05/17/18 17:45 Urine RBC 0-2 (0-2) 05/17/18 17:45 Urine WBC Negative HPF (0-5) 05/17/18 17:45 Ur Epithelial Cells Negative HPF (Negative) 05/17/18 17:45 Urine Crystals Negative HPF (Negative) 05/17/18 17:45 Urine Bacteria Negative HPF (Negative) 05/17/18 17:45 Urine Casts Negative LPF (Negative) 05/17/18 17:45 Urine Mucus Negative (Negative) 05/17/18 17:45 Urine Other Negative (Negative) 05/17/18 17:45 Ur Culture Indicated? No 05/17/18 17:45 Urine Glucose Negative mg/dL (Negative) 05/17/18 17:45 Urine Opiates Screen Negative (Negative) 05/17/18 17:45 Urine Methadone Screen Negative (Negative) 05/17/18 17:45 Ur Barbiturates Screen Negative (Negative) 05/17/18 17:45 Ur Tricyclics Screen Negative (Negative) 05/17/18 17:45 Ur Amphetamines Screen Negative (Negative) 05/17/18 17:45 U Benzodiazepines Scrn Negative (Negative) 05/17/18 17:45 Urine Cocaine Screen Negative (Negative) 05/17/18 17:45 Ur THC Screen Negative (Negative) 05/17/18 17:45 Ethyl Alcohol 28.9 mg/dL (<3) 05/18/18 06:29
[2018-05-18] MEDS: Lactated Ringers 1,000 ML 150 ML IV (17:57)
[2018-05-18] MEDS: Enoxaparin 40 MG/0.4 ML SYR SC (22:04)
[2018-05-18] MEDS: Pantoprazole 40 MG VIAL IVP (22:04)
[2018-05-18] MEDS: Zolpidem 10 MG TAB PO (22:10)
[2018-05-19] VITALS (29 sets, daily range): BP systolic 121–153; BP diastolic 81–106; PULSE 54–79; RESP 14–27; TEMP 36–37; O2SAT 88–98
[2018-05-19] MEDS: Lactated Ringers 1,000 ML 150 ML IV ×3 (00:11→20:16)
[2018-05-19] MEDS: LORazepam 1 MG TAB PO/SL ×6 (03:16→23:54)
[2018-05-19 07:17] LABS: ALT 122 U/L (12-78); AST 92 U/L (15-37); Albumin 3.2 g/dL (3.4-5.0); Alkaline Phosphatase 117 U/L (46-116); Anion Gap 7.8 mmol/L (3-11); BUN 10 mg/dL (7-18); Bilirubin, Direct 0.32 mg/dL (0.00-0.20); Bilirubin, Total 2.2 mg/dL (0.2-1.0); CO2 28.2 mmol/L (21.0-32.0); CREATININE 0.87 mg/dL (0.70-1.30); Calcium 8.2 mg/dL (8.5-10.1); Chloride 101 mmol/L (98-107); Glucose 91 mg/dL (70-100); Potassium 3.9 mmol/L (3.5-5.1); Sodium 137 mmol/L (136-145); Total Protein 6.3 g/dL (6.4-8.2)
[2018-05-19] MEDS: Tamsulosin 0.4 MG CAPCR 0.8 MG PO (08:36)
[2018-05-19] MEDS: buPROPion-XL 150 MG TABCR PO (08:36)
--- NOTE | 2018-05-19 10:34 | PDOC.CMPRO ---
- If Service Date Differs Date of service: 05/19/18 Time of Service: 10:34 Care Management Progress Note S/O: LA NENA met with Danie at the bedside he is alert and appears restless during visit. LA NENA was able to coordinate Danie voting with the [facility] a ANGELA will be down to complete ballot with Danie. Danie continues to receive IV pain management, fluids and continues on CIWA scale. Danie was provided with a notebook and online sties for AA meetings. Danie is currently not receive Suboxone while receiving morphine for pain. He will need to follow up with primary care to continue his treatment with Suboxone. LA NENA left a voicemail for chronic care director at [facility] to follow with patient while inpatient and then after discharge. LA NENA is coordinating laptop with [facility] to assist with online aa meetings and resource. A: Danie is a 53 year old male with a history of substance abuse, admitted with Acute pancreatitis, acute etoh withdrawal P: Danie is currently receiving IV fluids, and IV pain control. He is currently being assessed for alcohol withdrawal and being cared for in the ICU. He will return home when medically ready per provider with outpatient supports.
--- NOTE | 2018-05-19 10:45 | CMPROGNOTE_ITS ---
- If Service Date Differs Date of service: 05/19/18 Time of Service: 10:34 Care Management Progress Note S/O: LA NENA met with Danie at the bedside he is alert and appears restless during visit. LA NENA was able to coordinate Danie voting with the [facility] a ANGELA will be down to complete ballot with Danie. Danie continues to receive IV pain management, fluids and continues on CIWA scale. Danie was provided with a notebook and online sties for AA meetings. Danie is currently not receive Suboxone while receiving morphine for pain. He will need to follow up with primary care to continue his treatment with Suboxone. LA NENA left a voicemail for chronic companion caregiver at [facility] to follow with patient while inpatient and then after discharge. LA NENA is coordinating laptop with [facility] to assist with online aa meetings and resource. A: Danie is a 53 year old male with a history of substance abuse, admitted with Acute pancreatitis, acute etoh withdrawal P: Danie is currently receiving IV fluids, and IV pain control. He is currently being assessed for alcohol withdrawal and being cared for in the ICU. He will return home when medically ready per provider with outpatient supports.
--- NOTE | 2018-05-19 13:46 | DI.MRI_ITS ---
SYMPTOM/DIAGNOSIS: PANCREATITIS MRCP: Routine noncontrast examination was performed. The intra and extrahepatic bile ducts are of normal caliber. No filling defects are seen to suggest a retained stone. The patient is status post cholecystectomy. The pancreatic duct has a normal appearance. Note is made of left renal cysts. These can be seen on the CT scan from . The pancreas appears grossly unremarkable on this noncontrast examination. No peripancreatic fluid collection is identified. The visualized portions of the liver are unremarkable. IMPRESSION: 1. Status post cholecystectomy. 2. No evidence of choledocholithiasis or biliary ductal dilatation.
[2018-05-19] MEDS: Ketorolac 15 MG/ML VIAL IVP ×2 (14:21→17:00)
[2018-05-19] MEDS: Docusate Sodium 100 MG CAP PO ×2 (14:21→21:10)
[2018-05-19] MEDS: Normal Saline Flush 10 ML SYR IVP ×3 (14:23→23:56)
--- NOTE | 2018-05-19 15:58 | W.PM.PROGNOT ---
Date of Service Date of service: 05/19/18 Time of Service: 12:00 Assessment and Plan (1) Acute alcoholic pancreatitis: Current visit: Yes Status: Acute Clinically worse today. Diet downgraded to NPO with ice chips/sips of water. Continue IVF. MRCP without evidence of choledocholithiasis. Add toradol for pain control. (2) Alcoholic hepatitis: Current visit: Yes Status: Acute Mild, prognosis good. Transaminitis could also be due to pancreatitis. No role for prednisolone. Alcohol abstinence counselled. (3) History of narcotic addiction: Current visit: Yes Status: Chronic Suboxone on hold while the patient is on morphine. (4) Alcoholism: Current visit: Yes Status: Chronic Continue CIWA/prn ativan/banana bag. Case management aware of patient considering substance abuse rehab. (5) GERD (gastroesophageal reflux disease): Current visit: Yes Status: Chronic continue PPI (6) Urinary retention: Current visit: Yes Status: Acute passed voiding trial. (7) Discharge planning issues: Current visit: Yes Status: Acute Patient is considering inpatient substance abuse rehab (8) DVT prophylaxis: Current visit: Yes Status: Acute lovenox Subjective Interval history since last seen: Complains of worsening epigastric pain, worse than yesterday. Agrees to downgrade diet to NPO with ice chips/sips of water. Denies dizziness, chest pain, shortness of breath, nausea, vomiting. Had a formed BM today. Exam Narrative Exam Narrative: General: Middle aged male, sitting in a chair, wearing civilian clothes Neurological: A&Ox3, no focal deficits, not tremulous Psychiatric: appears depressed Skin: no bruising/rashes HEENT: EOMI, MMM, no JVD Cardiovascular: RRR, no m/r/g Lungs: CTAB Gastrointestinal: abdomen soft, more tender in epigastrium than yesterday Extremities: no edema/clubbing/cyanosis of BLE's Objective Objective Clinical Data: Abnormal lab results 05/19/18 Range/Units 06:08 Calcium 8.2 L (8.5-10.1) mg/dL Total Bilirubin 2.2 H (0.2-1.0) mg/dL Conjugated Bilirubin 0.32 H (0.00-0.20) mg/dL AST 92 H (15-37) U/L ALT 122 H (12-78) U/L Alkaline Phosphatase 117 H (46-116) U/L Total Protein 6.3 L (6.4-8.2) g/dL Albumin 3.2 L (3.4-5.0) g/dL Vital Signs Temperature 37.4 C 05/18/18 23:26 Temperature Source Temporal Artery Scan 05/18/18 23:26 Pulse 64 05/19/18 10:19 Pulse Rhythm Regular 05/19/18 08:00 Pulse 69 05/18/18 14:30 Respiratory Rate 16 05/18/18 19:30 Respiratory Effort Non-Labored 05/19/18 08:00 Respiratory Depth Normal 05/19/18 08:00 Respiratory Pattern Normal 05/19/18 08:00 Blood Pressure 140/95 H 05/19/18 10:19 Blood Pressure Mean 106 05/19/18 10:19 Blood Pressure Position Supine 05/17/18 21:55 Pulse Oximetry 96 05/19/18 10:19 Oxygen Delivery Method Room Air 05/18/18 19:30 Oxygen Flow Rate 0 05/18/18 19:30 Pain Level 7 05/19/18 14:21 Comment 05/17/18 19:19 Intake & Output 05/18/18 05/19/18 05/19/18 23:59 11:59 23:59 Intake Total 2718 / 2718 2907.5 / 2907.5 700.0 / 700.0 Output Total 1900 / 1900 1625 / 1625 Balance 818 / 818 1282.5 / 1282.5 700.0 / 700.0 Weight 93.2 kg Intake: IV 1680 / 1680 2127.5 / 2127.5 700.0 / 700.0 Oral 1038 / 1038 780 / 780 Output: Urine 1550 / 1550 1625 / 1625 Post Void Residual 350 / 350 Other: Urine Color Yellow Yellow Urine Appearance Cloudy Clear Urine Odor Strong Comment Pt voided and RN scanned 10 min later with 100ml PVR Pt has been voiding in 200-300ml amounts every 1-3 hours Stool Occult Blood Negative Stool Size Small Stool Characteristics Formed [place] Voiding Methods Urinal Laboratory Results WBC 5.80 k/cumm (4.4-10.8) 05/18/18 06:29 RBC 4.25 m/cumm (4.50-6.00) L 05/18/18 06:29 Hgb 13.2 g/dL (13.5-17.5) L D 05/18/18 06:29 Hct 39.0 % (40.0-50.0) L 05/18/18 06:29 MCV 91.8 fL (80-95) 05/18/18 06:29 MCH 31.1 pg (27.0-33.0) 05/18/18 06: MCHC 33.8 g/dL (32.0-36.0) 05/18/18 06:29 RDW 14.0 % (11.8-14.1) 05/18/18 06:29 Plt Count 155 x1000/uL (130-400) 05/18/18 06: MPV 10.5 fL (8.0-11.0) 05/18/18 06:29 Immature Gran % 0.2 05/18/18 06: Neutrophils % 69.0 05/18/18 06: Lymphocytes % 24.7 05/18/18 06:29 Monocytes % 4.7 05/18/18 06: Eosinophils % 1.2 05/18/18 06: Basophils % 0.2 05/18/18 06:29 Absolute Neutrophils 4.01 k/cumm (1.2-6.7) 05/18/18 06:29 Absolute Lymphocytes 1.43 k/cumm (1.2-3.4) 05/18/18 06:29 Absolute Monocytes 0.27 k/cumm (0.11-0.7) 05/18/18 06:29 Absolute Eosinophils 0.07 k/cumm (0.0-0.7) 05/18/18 06:29 Absolute Basophils 0.01 k/cumm (0.0-0.2) 05/18/18 06:29 PT 9.6 sec (9.3-10.8) 05/18/18 07:38 INR 1.0 (1.0-3.5) 05/18/18 07:38 Sodium 137 mmol/L (136-145) 05/19/18 06:08 Potassium 3.9 mmol/L (3.5-5.1) 05/19/18 06:08 Chloride 101 mmol/L (98-107) 05/19/18 06:08 Carbon Dioxide 28.2 mmol/L (21.0-32.0) 05/19/18 06:08 Anion Gap 7.8 mmol/L (3-11) 05/19/18 06:08 BUN 10 mg/dL (7-18) 05/19/18 06:08 Creatinine 0.87 mg/dL (0.70-1.30) 05/19/18 06:08 Estimated GFR/1.73 m2 >= 60.00 (mL/min/1.73m2) 05/19/18 06:08 Glucose 91 mg/dL (70-100) 05/19/18 06:08 Calcium 8.2 mg/dL (8.5-10.1) L 05/19/18 06:08 Phosphorus 3.7 mg/dL (2.6-4.7) 05/18/18 06:29 Magnesium 2.0 mg/dL (1.8-2.4) 05/19/18 06:08 Total Bilirubin 2.2 mg/dL (0.2-1.0) H 05/19/18 06:08 Conjugated Bilirubin 0.32 mg/dL (0.00-0.20) H 05/19/18 06:08 AST 92 U/L (15-37) H 05/19/18 06:08 ALT 122 U/L (12-78) H 05/19/18 06:08 Alkaline Phosphatase 117 U/L (46-116) H 05/19/18 06:08 Troponin I < 0.02 ng/mL (0.00-0.06) 05/18/18 06:29 Total Protein 6.3 g/dL (6.4-8.2) L 05/19/18 06:08 Albumin 3.2 g/dL (3.4-5.0) L 05/19/18 06:08 Lipase 925 U/L (73-393) H 05/18/18 06:29 TSH 1.63 uIU/mL (0.358-3.74) 05/17/18 17:15 Urine Color Yellow (Yellow) 05/17/18 17:45 Urine Clarity Clear 05/17/18 17:45 Urine pH 6.0 (5-8) 05/17/18 17:45 Ur Specific [place] <= 1.005 (1.005-1.025) 05/17/18 17:45 Urine Protein Negative mg/dL (Negative) 05/17/18 17:45 Urine Ketones Negative mg/dL (Negative) 05/17/18 17:45 Urine Blood Small (Negative) H 05/17/18 17:45 Urine Nitrite Negative (Negative) 05/17/18 17:45 Urine Bilirubin Negative (Negative) 05/17/18 17:45 Urine Urobilinogen 1.0 EU/dL (Up TO 0.2) H 05/17/18 17:45 Ur Leukocyte Esterase Negative (Negative) 05/17/18 17:45 Urine RBC 0-2 (0-2) 05/17/18 17:45 Urine WBC Negative HPF (0-5) 05/17/18 17:45 Ur Epithelial Cells Negative HPF (Negative) 05/17/18 17:45 Urine Crystals Negative HPF (Negative) 05/17/18 17:45 Urine Bacteria Negative HPF (Negative) 05/17/18 17:45 Urine Casts Negative LPF (Negative) 05/17/18 17:45 Urine Mucus Negative (Negative) 05/17/18 17:45 Urine Other Negative (Negative) 05/17/18 17:45 Ur Culture Indicated? No 05/17/18 17:45 Urine Glucose Negative mg/dL (Negative) 05/17/18 17:45 Urine Opiates Screen Negative (Negative) 05/17/18 17:45 Urine Methadone Screen Negative (Negative) 05/17/18 17:45 Ur Barbiturates Screen Negative (Negative) 05/17/18 17:45 Ur Tricyclics Screen Negative (Negative) 05/17/18 17:45 Ur Amphetamines Screen Negative (Negative) 05/17/18 17:45 U Benzodiazepines Scrn Negative (Negative) 05/17/18 17:45 Urine Cocaine Screen Negative (Negative) 05/17/18 17:45 Ur THC Screen Negative (Negative) 05/17/18 17:45 Ethyl Alcohol 28.9 mg/dL (<3) 05/18/18 06:29 MRCP: IMPRESSION: 1. Status post cholecystectomy. 2. No evidence of choledocholithiasis or biliary ductal dilatation.
[2018-05-19] MEDS: Pantoprazole 40 MG VIAL IVP (20:11)
[2018-05-19] MEDS: Enoxaparin 40 MG/0.4 ML SYR SC (20:12)
[2018-05-19] MEDS: LORazepam 2 MG/ML VIAL 4 MG IVP (20:54)
[2018-05-19] MEDS: Ketorolac 15 MG/ML VIAL 30 MG IVP (23:54)
[2018-05-20] VITALS (43 sets, daily range): BP systolic 132–150; BP diastolic 89–101; PULSE 47–86; RESP 10–98; TEMP 37; O2SAT 93–99
--- NOTE | 2018-05-20 00:07 | NUR.NOTE ---
1955-pt has been walking in the sinha with his pump and has been coming back in to the icu without incidence. CIWA scores are now getting higher and pt was seen walking in sinha, going into med/surg report room and coming out with a bag of potato chips. These were taken away from the pt and he was told he was npo. Pt was then noted on the room camera monitor to be eating something and was found with a tin of pudding that he had half eaten. it was removed and again told that he was npo. Dr. Geiger called and notified of high CIWA score and new orders were obtained. Nursing Note:
[2018-05-20] MEDS: LORazepam 1 MG TAB PO/SL ×7 (01:54→21:59)
[2018-05-20] MEDS: Lactated Ringers 1,000 ML 150 ML IV ×3 (03:25→23:46)
[2018-05-20] MEDS: Ketorolac 15 MG/ML VIAL 30 MG IVP ×2 (06:38→12:33)
[2018-05-20 07:17] LABS: Absolute Basophil Count 0.01 k/cumm (0.0-0.2); Absolute Monocyte Count 0.22 k/cumm (0.11-0.7); Absolute Neutrophil Count 1.51 k/cumm (1.2-6.7); Basophils % 0.3; Eosinophils % 9.3; HCT 38.8 % (40.0-50.0); HGB 12.9 g/dL (13.5-17.5); Mean Corp. HGB Concentration 33.2 g/dL (32.0-36.0); Mean Corpuscular Hemoglobin 30.9 pg (27.0-33.0); Mean Platelet Volume 10.7 fL (8.0-11.0); Monocytes % 6.8; Neutrophils % 46.6; Platelet Count 127 x1000/uL (130-400); RBC 4.17 m/cumm (4.50-6.00); RBC Distribution Width 13.3 % (11.8-14.1); White Blood Cell Count 3.24 k/cumm (4.4-10.8)
[2018-05-20 07:30] LABS: ALT 96 U/L (12-78); AST 47 U/L (15-37); Alkaline Phosphatase 97 U/L (46-116); Anion Gap 8.6 mmol/L (3-11); BUN 7 mg/dL (7-18); Bilirubin, Direct 0.31 mg/dL (0.00-0.20); Bilirubin, Total 1.6 mg/dL (0.2-1.0); CO2 27.4 mmol/L (21.0-32.0); Calcium 8.4 mg/dL (8.5-10.1); Chloride 104 mmol/L (98-107); Glucose 90 mg/dL (70-100); Potassium 3.9 mmol/L (3.5-5.1); Sodium 140 mmol/L (136-145); Total Protein 6.1 g/dL (6.4-8.2)
[2018-05-20] MEDS: Tamsulosin 0.4 MG CAPCR 0.8 MG PO (07:54)
[2018-05-20] MEDS: buPROPion-XL 150 MG TABCR PO (07:55)
[2018-05-20] MEDS: Docusate Sodium 100 MG CAP PO ×3 (07:55→19:29)
--- NOTE | 2018-05-20 10:12 | CMPROGNOTE_ITS ---
- If Service Date Differs Date of service: 05/20/18 Time of Service: 10:11 Care Management Progress Note S/O: CM met with patient at the bedside, contacted patients chronic disabilities caregiver and reviewed current admission. CCC will contact when he returns on and review plan to continues Danie Suboxone. Danie was provided a computer today from [facility] to attend online AA support if he chooses. His withdrawal scores are increasing. He reports he is having some confusion when he awakes. He continues to receive lorazepam and IV pain management. A: Danie is a 53 year old male with a history of substance abuse, admitted with Acute pancreatitis, acute etoh withdrawal P: Danie is currently receiving IV fluids, and IV pain control. He is currently being assessed for alcohol withdrawal and being cared for in the ICU. He did change to ICU status today. He will return home when medically ready per provider with outpatient supports.
[2018-05-20] MEDS: Normal Saline Flush 10 ML SYR IVP ×4 (10:50→23:46)
[2018-05-20] MEDS: HYDROmorphone 2 MG/ML VIAL 1 MG IVP ×6 (13:15→23:46)
--- NOTE | 2018-05-20 15:22 | CHAPLAIN ---
Danie was resting in bed when I visited. He had just finished a phone call and was teary. He stated that he doesn't want put his family and friends through this again. He said he knows what supports and plans work best for him when he is in this situation. After our conversation, he asked if I could see if LA NENA Garrett had located a laptop for him to investigate AA meetings on line.
--- NOTE | 2018-05-20 16:33 | W.PM.PROGNOT ---
Date of Service Date of service: 05/20/18 Time of Service: 12:15 Assessment and Plan (1) Acute alcoholic pancreatitis: Current visit: Yes Status: Acute Patient would like to try to advance his diet today - will trial broth, tea. Continue IVF. MRCP without evidence of choledocholithiasis. D/c toradol - ineffective. (2) Alcoholic hepatitis: Current visit: Yes Status: Acute Mild, improving, prognosis good. Transaminitis could also be due to pancreatitis. No role for prednisolone. Alcohol abstinence counselled. (3) History of narcotic addiction: Current visit: Yes Status: Chronic Suboxone on hold while the patient is on dilaudid (4) Alcoholism: Current visit: Yes Status: Chronic with acute alcohol withdrawal - continue CIWA, banana bag, scheduled oxazepam, prn ativan (5) GERD (gastroesophageal reflux disease): Current visit: Yes Status: Chronic continue PPI (6) Urinary retention: Current visit: Yes Status: Acute passed voiding trial. (7) Discharge planning issues: Current visit: Yes Status: Acute Patient is considering inpatient substance abuse rehab (8) DVT prophylaxis: Current visit: Yes Status: Acute lovenox Subjective Interval history since last seen: States the pain is a little bit better now that he has been switched to dilaudid. Denies dizziness, chest pain, shortness of breath. Feels a little nauseated and constipated. Overnight last night, started to go into alcohol withdrawal and required scheduling of oxazepam. Since then, doing better. Exam Narrative Exam Narrative: General: Middle aged male, sitting in a chair, wearing civilian clothes Neurological: A&Ox3, no focal deficits, not tremulous Psychiatric: appears depressed Skin: no bruising/rashes HEENT: EOMI, MMM, no JVD Cardiovascular: RRR, no m/r/g Lungs: CTAB Gastrointestinal: abdomen soft, tender in epigastrium Extremities: no edema/clubbing/cyanosis of BLE's Objective Objective Clinical Data: Abnormal lab results 05/20/18 05/20/18 Range/Units 06:48 06:48 WBC 3.24 L (4.4-10.8) k/cumm RBC 4.17 L (4.50-6.00) m/cumm Hgb 12.9 L (13.5-17.5) g/dL Hct 38.8 L (40.0-50.0) % Plt Count 127 L (130-400) x1000/uL Calcium 8.4 L (8.5-10.1) mg/dL Total Bilirubin 1.6 H (0.2-1.0) mg/dL Conjugated Bilirubin 0.31 H (0.00-0.20) mg/dL AST 47 H (15-37) U/L ALT 96 H (12-78) U/L Total Protein 6.1 L (6.4-8.2) g/dL Albumin 3.0 L (3.4-5.0) g/dL Vital Signs Temperature 37.0 C 05/20/18 12:30 Temperature Source Temporal Artery Scan 05/20/18 12:30 Pulse 48 L 05/20/18 12:32 Pulse Rhythm Regular 05/20/18 08:15 Pulse 68 05/20/18 12:32 Respiratory Rate 15 05/20/18 12:32 Respiratory Effort Non-Labored 05/20/18 12:30 Respiratory Depth Normal 05/20/18 12:30 Respiratory Pattern Normal 05/20/18 12:30 Blood Pressure 149/97 H 05/20/18 12:32 Blood Pressure Mean 108 05/20/18 12:32 Blood Pressure Position Supine 05/17/18 21:55 Pulse Oximetry 98 05/20/18 12:30 Oxygen Delivery Method Room Air 05/20/18 12:30 Oxygen Flow Rate 0 05/20/18 12:30 Pain Level 7 05/20/18 15:26 Comment 05/17/18 19:19 Intake & Output 05/19/18 05/20/18 05/20/18 23:59 11:59 23:59 Intake Total 2626.2 / 2626.2 2034 557.5 / 557.5 Output Total 1500 / 1500 2150 / 2150 850 / 850 Balance 1126.2 / 1126.2 -115 / -115 -292.5 / -292.5 Weight 89.1 kg Intake: IV 2626.2 / 2626.2 2034 557.5 / 557.5 Output: Urine 1500 / 1500 2150 / 2150 850 / 850 Other: Urine Color Pale Dark Noelle Dark Noelle Yellow Urine Appearance Clear Clear Clear Urine Odor None None Voiding Methods Urinal Urinal Laboratory Results WBC 3.24 k/cumm (4.4-10.8) L 05/20/18 06:48 RBC 4.17 m/cumm (4.50-6.00) L 05/20/18 06:48 Hgb 12.9 g/dL (13.5-17.5) L 05/20/18 06:48 Hct 38.8 % (40.0-50.0) L 05/20/18 06:48 MCV 93.0 fL (80-95) 05/20/18 06:48 MCH 30.9 pg (27.0-33.0) 05/20/18 06:48 MCHC 33.2 g/dL (32.0-36.0) 05/20/18 06:48 RDW 13.3 % (11.8-14.1) 05/20/18 06:48 Plt Count 127 x1000/uL (130-400) L 05/20/18 06:48 MPV 10.7 fL (8.0-11.0) 05/20/18 06:48 Immature Gran % 0.0 05/20/18 06:48 Neutrophils % 46.6 05/20/18 06:48 Lymphocytes % 37.0 05/20/18 06:48 Monocytes % 6.8 05/20/18 06:48 Eosinophils % 9.3 05/20/18 06:48 Basophils % 0.3 05/20/18 06:48 Absolute Neutrophils 1.51 k/cumm (1.2-6.7) 05/20/18 06:48 Absolute Lymphocytes 1.20 k/cumm (1.2-3.4) 05/20/18 06:48 Absolute Monocytes 0.22 k/cumm (0.11-0.7) 05/20/18 06:48 Absolute Eosinophils 0.30 k/cumm (0.0-0.7) 05/20/18 06:48 Absolute Basophils 0.01 k/cumm (0.0-0.2) 05/20/18 06:48 PT 9.6 sec (9.3-10.8) 05/18/18 07:38 INR 1.0 (1.0-3.5) 05/18/18 07:38 Sodium 140 mmol/L (136-145) 05/20/18 06:48 Potassium 3.9 mmol/L (3.5-5.1) 05/20/18 06:48 Chloride 104 mmol/L (98-107) 05/20/18 06:48 Carbon Dioxide 27.4 mmol/L (21.0-32.0) 05/20/18 06:48 Anion Gap 8.6 mmol/L (3-11) 05/20/18 06:48 BUN 7 mg/dL (7-18) 05/20/18 06:48 Creatinine 0.80 mg/dL (0.70-1.30) 05/20/18 06:48 Estimated GFR/1.73 m2 >= 60.00 (mL/min/1.73m2) 05/20/18 06:48 Glucose 90 mg/dL (70-100) 05/20/18 06:48 Calcium 8.4 mg/dL (8.5-10.1) L 05/20/18 06:48 Phosphorus 3.7 mg/dL (2.6-4.7) 05/18/18 06:29 Magnesium 2.0 mg/dL (1.8-2.4) 05/20/18 06:48 Total Bilirubin 1.6 mg/dL (0.2-1.0) H 05/20/18 06:48 Conjugated Bilirubin 0.31 mg/dL (0.00-0.20) H 05/20/18 06:48 AST 47 U/L (15-37) H 05/20/18 06:48 ALT 96 U/L (12-78) H 05/20/18 06:48 Alkaline Phosphatase 97 U/L (46-116) 05/20/18 06:48 Troponin I < 0.02 ng/mL (0.00-0.06) 05/18/18 06:29 Total Protein 6.1 g/dL (6.4-8.2) L 05/20/18 06:48 Albumin 3.0 g/dL (3.4-5.0) L 05/20/18 06:48 Lipase 925 U/L (73-393) H 05/18/18 06:29 TSH 1.63 uIU/mL (0.358-3.74) 05/17/18 17:15 Urine Color Yellow (Yellow) 05/17/18 17:45 Urine Clarity Clear 05/17/18 17:45 Urine pH 6.0 (5-8) 05/17/18 17:45 Ur Specific [place] <= 1.005 (1.005-1.025) 05/17/18 17:45 Urine Protein Negative mg/dL (Negative) 05/17/18 17:45 Urine Ketones Negative mg/dL (Negative) 05/17/18 17:45 Urine Blood Small (Negative) H 05/17/18 17:45 Urine Nitrite Negative (Negative) 05/17/18 17:45 Urine Bilirubin Negative (Negative) 05/17/18 17:45 Urine Urobilinogen 1.0 EU/dL (Up TO 0.2) H 05/17/18 17:45 Ur Leukocyte Esterase Negative (Negative) 05/17/18 17:45 Urine RBC 0-2 (0-2) 05/17/18 17:45 Urine WBC Negative HPF (0-5) 05/17/18 17:45 Ur Epithelial Cells Negative HPF (Negative) 05/17/18 17:45 Urine Crystals Negative HPF (Negative) 05/17/18 17:45 Urine Bacteria Negative HPF (Negative) 05/17/18 17:45 Urine Casts Negative LPF (Negative) 05/17/18 17:45 Urine Mucus Negative (Negative) 05/17/18 17:45 Urine Other Negative (Negative) 05/17/18 17:45 Ur Culture Indicated? No 05/17/18 17:45 Urine Glucose Negative mg/dL (Negative) 05/17/18 17:45 Urine Opiates Screen Negative (Negative) 05/17/18 17:45 Urine Methadone Screen Negative (Negative) 05/17/18 17:45 Ur Barbiturates Screen Negative (Negative) 05/17/18 17:45 Ur Tricyclics Screen Negative (Negative) 05/17/18 17:45 Ur Amphetamines Screen Negative (Negative) 05/17/18 17:45 U Benzodiazepines Scrn Negative (Negative) 05/17/18 17:45 Urine Cocaine Screen Negative (Negative) 05/17/18 17:45 Ur THC Screen Negative (Negative) 05/17/18 17:45 Ethyl Alcohol 28.9 mg/dL (<3) 05/18/18 06:29
[2018-05-20] MEDS: Enoxaparin 40 MG/0.4 ML SYR SC (21:29)
[2018-05-20] MEDS: Pantoprazole 40 MG VIAL IVP (21:30)
[2018-05-20] MEDS: Zolpidem 10 MG TAB PO (21:59)
[2018-05-21] VITALS (24 sets, daily range): BP systolic 128–158; BP diastolic 83–110; PULSE 45–81; RESP 9–23; TEMP 36.8–37.2; O2SAT 89–100
[2018-05-21] MEDS: LORazepam 1 MG TAB PO/SL ×8 (00:06→22:16)
[2018-05-21] MEDS: Lactated Ringers 1,000 ML 150 ML IV ×3 (06:06→21:29)
[2018-05-21 07:14] LABS: Absolute Eosinophil Count 0.29 k/cumm (0.0-0.7); Absolute Lymphocyte Count 1.01 k/cumm (1.2-3.4); Absolute Monocyte Count 0.24 k/cumm (0.11-0.7); Absolute Neutrophil Count 2.27 k/cumm (1.2-6.7); Eosinophils % 7.6; HGB 13.1 g/dL (13.5-17.5); Lymphocytes % 26.5; Mean Corp. HGB Concentration 32.8 g/dL (32.0-36.0); Mean Corpuscular Hemoglobin 30.5 pg (27.0-33.0); Mean Corpuscular Volume 93.2 fL (80-95); Mean Platelet Volume 10.2 fL (8.0-11.0); Monocytes % 6.3; Neutrophils % 59.6; Platelet Count 126 x1000/uL (130-400); RBC 4.29 m/cumm (4.50-6.00); RBC Distribution Width 13.1 % (11.8-14.1); White Blood Cell Count 3.81 k/cumm (4.4-10.8)
[2018-05-21 07:28] LABS: ALT 89 U/L (12-78); AST 37 U/L (15-37); Alkaline Phosphatase 89 U/L (46-116); Anion Gap 8.8 mmol/L (3-11); BUN 8 mg/dL (7-18); Bilirubin, Direct 0.29 mg/dL (0.00-0.20); Bilirubin, Total 1.4 mg/dL (0.2-1.0); CO2 28.2 mmol/L (21.0-32.0); CREATININE 0.94 mg/dL (0.70-1.30); Calcium 8.5 mg/dL (8.5-10.1); Chloride 104 mmol/L (98-107); Glucose 86 mg/dL (70-100); Magnesium 1.8 mg/dL (1.8-2.4); Potassium 3.9 mmol/L (3.5-5.1); Sodium 141 mmol/L (136-145); Total Protein 6.1 g/dL (6.4-8.2)
[2018-05-21] MEDS: HYDROmorphone 2 MG/ML VIAL 1 MG IVP ×2 (09:13→10:59)
[2018-05-21] MEDS: Tamsulosin 0.4 MG CAPCR 0.8 MG PO (09:14)
[2018-05-21] MEDS: buPROPion-XL 150 MG TABCR PO (09:14)
[2018-05-21] MEDS: Normal Saline Flush 10 ML SYR IVP ×2 (10:59→22:04)
[2018-05-21] MEDS: HYDROmorphone 2 MG/ML VIAL 1.5 MG IVP ×7 (13:25→23:38)
--- NOTE | 2018-05-21 14:45 | PDOC.CMPRO ---
- If Service Date Differs Date of service: 05/21/18 Time of Service: 14:45 Care Management Progress Note S/O: CM met with patient at the bedside he is tearful and currently writing a letter to his spouse. He does not want his spouse to receive information at this time and removed her from his HIPPA form, He states that he just wants to focus on his plan here. He is unable to recognize his own denial at this point. He is unable to have a detailed conversation at this time due to tactfulness. CM provided active listing and reflection of his goals which he states is to not use alcohol. CM educated patient on symptoms of withdrawal and encouraged him to continue to be treated for pain management and alcohol withdrawal management. Danie continues to be in agreement with the plan and hopes to be through the worse of the symptoms by the weekend. CM provided patient with [facility] resource information will request consult with Brittney Morgan is possible. A: Danie is a 53 year old male with a history of substance abuse, admitted with Acute pancreatitis, acute etoh withdrawal P: Danie is currently receiving IV fluids, and IV pain control. He is currently being assessed for alcohol withdrawal and being cared for in the ICU. He did change to ICU status today. He will return home when medically ready per provider with outpatient supports. CM referred patient to [facility] for resources.
--- NOTE | 2018-05-21 17:10 | W.PM.PROGNOT ---
Date of Service Date of service: 05/21/18 Time of Service: 12:00 Assessment and Plan (1) Acute alcoholic pancreatitis: Current visit: Yes Status: Acute Continue clears. However, if continues to report such severe pain, would reimage him (CT) tomorrow to ensure that he is not developing complications. Continue IVF. MRCP without evidence of choledocholithiasis. (2) Alcoholic hepatitis: Current visit: Yes Status: Acute Mild, resolving, prognosis good. Transaminitis could also be due to pancreatitis. No role for prednisolone. Alcohol abstinence counselled. (3) History of narcotic addiction: Current visit: Yes Status: Chronic Suboxone on hold while the patient is on dilaudid (4) Alcoholism: Current visit: Yes Status: Chronic with acute alcohol withdrawal - continue CIWA, banana bag, scheduled oxazepam, prn ativan (5) GERD (gastroesophageal reflux disease): Current visit: Yes Status: Chronic continue PPI (6) Urinary retention: Current visit: Yes Status: Acute passed voiding trial. (7) Discharge planning issues: Current visit: Yes Status: Acute Patient is considering inpatient substance abuse rehab (8) DVT prophylaxis: Current visit: Yes Status: Acute lovenox Subjective Interval history since last seen: Complains of epigastric pain, stating that dilaudid does not last until the next dose. Denies dizziness, chest pain, shortness of breath. Has some nausea and diarrhea. Exam Narrative Exam Narrative: General: Middle aged male, in bed, appears uncomfortable Neurological: A&Ox3, no focal deficits, not tremulous Psychiatric: appears depressed, anxious Skin: no bruising/rashes HEENT: EOMI, MMM, no JVD Cardiovascular: RRR, no m/r/g Lungs: CTAB Gastrointestinal: abdomen soft, tender in epigastrium Extremities: no edema/clubbing/cyanosis of BLE's Objective Objective Clinical Data: Abnormal lab results 05/21/18 05/21/18 Range/Units 06:30 06:30 WBC 3.81 L (4.4-10.8) k/cumm RBC 4.29 L (4.50-6.00) m/cumm Hgb 13.1 L (13.5-17.5) g/dL Plt Count 126 L (130-400) x1000/uL Absolute Lymphocytes 1.01 L (1.2-3.4) k/cumm Total Bilirubin 1.4 H (0.2-1.0) mg/dL Conjugated Bilirubin 0.29 H (0.00-0.20) mg/dL ALT 89 H (12-78) U/L Total Protein 6.1 L (6.4-8.2) g/dL Albumin 3.0 L (3.4-5.0) g/dL Vital Signs Temperature 36.8 C 05/21/18 16:08 Temperature Source Temporal Artery Scan 05/21/18 16:08 Pulse 80 05/21/18 16:08 Pulse Rhythm Regular 05/20/18 08:15 Pulse 70 05/21/18 15:56 Respiratory Rate 16 05/21/18 16:08 Respiratory Effort Non-Labored 05/21/18 16:08 Respiratory Depth Normal 05/21/18 16:08 Respiratory Pattern Normal 05/21/18 16:08 Blood Pressure 138/98 H 05/21/18 16:08 Blood Pressure Mean 111 05/21/18 16:08 Blood Pressure Position Sitting 05/21/18 16:08 Pulse Oximetry 99 05/21/18 16:08 Oxygen Delivery Method Room Air 05/21/18 16:08 Oxygen Flow Rate 0 05/21/18 16:08 Pain Level 7 05/21/18 17:04 Comment 05/17/18 19:19 Intake & Output 05/20/18 05/21/18 05/21/18 23:59 11:59 23:59 Intake Total 2614.9 / 2614.9 1120 / 1120 1101.2 / 1101.2 Output Total 2825 / 2825 2325 / 2325 1075 / 1075 Balance -210.1 / -210.1 -1205 / -1205 26.2 / 26.2 Intake: IV 2464.9 / 2464.9 1000 / 1000 1011.2 / 1011.2 Oral 150 / 150 120 / 120 90 / 90 Output: Urine 2475 / 2475 2325 / 2325 1075 / 1075 Stool 350 / 350 Other: Urine Color Dark Noelle Yellow Yellow Urine Appearance Clear Clear Clear Urine Odor None None Comment Continent void to urinal. Continent void to urinal. Stool Occult Blood Positive Stool Size Large Moderate Stool Characteristics Brown Soft Black Liquid Brown Voiding Methods Urinal Urinal Laboratory Results WBC 3.81 k/cumm (4.4-10.8) L 05/21/18 06:30 RBC 4.29 m/cumm (4.50-6.00) L 05/21/18 06:30 Hgb 13.1 g/dL (13.5-17.5) L 05/21/18 06:30 Hct 40.0 % (40.0-50.0) 05/21/18 06:30 MCV 93.2 fL (80-95) 05/21/18 06:30 MCH 30.5 pg (27.0-33.0) 05/21/18 06:30 MCHC 32.8 g/dL (32.0-36.0) 05/21/18 06:30 RDW 13.1 % (11.8-14.1) 05/21/18 06:30 Plt Count 126 x1000/uL (130-400) L 05/21/18 06:30 MPV 10.2 fL (8.0-11.0) 05/21/18 06:30 Immature Gran % 0.0 05/21/18 06:30 Neutrophils % 59.6 05/21/18 06:30 Lymphocytes % 26.5 05/21/18 06:30 Monocytes % 6.3 05/21/18 06:30 Eosinophils % 7.6 05/21/18 06:30 Basophils % 0.0 05/21/18 06:30 Absolute Neutrophils 2.27 k/cumm (1.2-6.7) 05/21/18 06:30 Absolute Lymphocytes 1.01 k/cumm (1.2-3.4) L 05/21/18 06:30 Absolute Monocytes 0.24 k/cumm (0.11-0.7) 05/21/18 06:30 Absolute Eosinophils 0.29 k/cumm (0.0-0.7) 05/21/18 06:30 Absolute Basophils 0.00 k/cumm (0.0-0.2) 05/21/18 06:30 PT 9.6 sec (9.3-10.8) 05/18/18 07:38 INR 1.0 (1.0-3.5) 05/18/18 07:38 Sodium 141 mmol/L (136-145) 05/21/18 06:30 Potassium 3.9 mmol/L (3.5-5.1) 05/21/18 06:30 Chloride 104 mmol/L (98-107) 05/21/18 06:30 Carbon Dioxide 28.2 mmol/L (21.0-32.0) 05/21/18 06:30 Anion Gap 8.8 mmol/L (3-11) 05/21/18 06:30 BUN 8 mg/dL (7-18) 05/21/18 06:30 Creatinine 0.94 mg/dL (0.70-1.30) 05/21/18 06:30 Estimated GFR/1.73 m2 >= 60.00 (mL/min/1.73m2) 05/21/18 06:30 Glucose 86 mg/dL (70-100) 05/21/18 06:30 Calcium 8.5 mg/dL (8.5-10.1) 05/21/18 06:30 Phosphorus 3.7 mg/dL (2.6-4.7) 05/18/18 06:29 Magnesium 1.8 mg/dL (1.8-2.4) 05/21/18 06:30 Total Bilirubin 1.4 mg/dL (0.2-1.0) H 05/21/18 06:30 Conjugated Bilirubin 0.29 mg/dL (0.00-0.20) H 05/21/18 06:30 AST 37 U/L (15-37) 05/21/18 06:30 ALT 89 U/L (12-78) H 05/21/18 06:30 Alkaline Phosphatase 89 U/L (46-116) 05/21/18 06:30 Troponin I < 0.02 ng/mL (0.00-0.06) 05/18/18 06:29 Total Protein 6.1 g/dL (6.4-8.2) L 05/21/18 06:30 Albumin 3.0 g/dL (3.4-5.0) L 05/21/18 06:30 Lipase 925 U/L (73-393) H 05/18/18 06:29 TSH 1.63 uIU/mL (0.358-3.74) 05/17/18 17:15 Urine Color Yellow (Yellow) 05/17/18 17:45 Urine Clarity Clear 05/17/18 17:45 Urine pH 6.0 (5-8) 05/17/18 17:45 Ur Specific [place] <= 1.005 (1.005-1.025) 05/17/18 17:45 Urine Protein Negative mg/dL (Negative) 05/17/18 17:45 Urine Ketones Negative mg/dL (Negative) 05/17/18 17:45 Urine Blood Small (Negative) H 05/17/18 17:45 Urine Nitrite Negative (Negative) 05/17/18 17:45 Urine Bilirubin Negative (Negative) 05/17/18 17:45 Urine Urobilinogen 1.0 EU/dL (Up TO 0.2) H 05/17/18 17:45 Ur Leukocyte Esterase Negative (Negative) 05/17/18 17:45 Urine RBC 0-2 (0-2) 05/17/18 17:45 Urine WBC Negative HPF (0-5) 05/17/18 17:45 Ur Epithelial Cells Negative HPF (Negative) 05/17/18 17:45 Urine Crystals Negative HPF (Negative) 05/17/18 17:45 Urine Bacteria Negative HPF (Negative) 05/17/18 17:45 Urine Casts Negative LPF (Negative) 05/17/18 17:45 Urine Mucus Negative (Negative) 05/17/18 17:45 Urine Other Negative (Negative) 05/17/18 17:45 Ur Culture Indicated? No 05/17/18 17:45 Urine Glucose Negative mg/dL (Negative) 05/17/18 17:45 Urine Opiates Screen Negative (Negative) 05/17/18 17:45 Urine Methadone Screen Negative (Negative) 05/17/18 17:45 Ur Barbiturates Screen Negative (Negative) 05/17/18 17:45 Ur Tricyclics Screen Negative (Negative) 05/17/18 17:45 Ur Amphetamines Screen Negative (Negative) 05/17/18 17:45 U Benzodiazepines Scrn Negative (Negative) 05/17/18 17:45 Urine Cocaine Screen Negative (Negative) 05/17/18 17:45 Ur THC Screen Negative (Negative) 05/17/18 17:45 Ethyl Alcohol 28.9 mg/dL (<3) 05/18/18 06:29
[2018-05-21] MEDS: Enoxaparin 40 MG/0.4 ML SYR SC (21:44)
[2018-05-21] MEDS: Pantoprazole 40 MG VIAL IVP (21:45)
[2018-05-22] VITALS (22 sets, daily range): BP systolic 126–150; BP diastolic 87–108; PULSE 42–87; RESP 9–24; TEMP 36.4–36.9; O2SAT 95–99
[2018-05-22] MEDS: HYDROmorphone 2 MG/ML VIAL 1.5 MG IVP ×7 (01:23→14:21)
[2018-05-22] MEDS: LORazepam 1 MG TAB PO/SL ×5 (01:24→23:10)
[2018-05-22] MEDS: Normal Saline Flush 10 ML SYR IVP ×3 (02:15→21:52)
[2018-05-22] MEDS: Lactated Ringers 1,000 ML 150 ML IV ×3 (04:03→23:49)
[2018-05-22 07:15] LABS: Abs Immature Grans 0.01 k/cumm (0.0-0.09); Absolute Basophil Count 0.01 k/cumm (0.0-0.2); Absolute Eosinophil Count 0.23 k/cumm (0.0-0.7); Absolute Lymphocyte Count 1.27 k/cumm (1.2-3.4); Absolute Monocyte Count 0.25 k/cumm (0.11-0.7); Absolute Neutrophil Count 1.58 k/cumm (1.2-6.7); Basophils % 0.3; Eosinophils % 6.9; HCT 38.3 % (40.0-50.0); HGB 12.6 g/dL (13.5-17.5); Immature Grans % 0.3; Lymphocytes % 37.9; Mean Corp. HGB Concentration 32.9 g/dL (32.0-36.0); Mean Corpuscular Hemoglobin 30.7 pg (27.0-33.0); Mean Corpuscular Volume 93.4 fL (80-95); Mean Platelet Volume 10.9 fL (8.0-11.0); Monocytes % 7.5; Neutrophils % 47.1; Platelet Count 122 x1000/uL (130-400); White Blood Cell Count 3.35 k/cumm (4.4-10.8)
[2018-05-22 07:21] LABS: Anion Gap 7.7 mmol/L (3-11); BUN 7 mg/dL (7-18); CO2 30.3 mmol/L (21.0-32.0); CREATININE 1.04 mg/dL (0.70-1.30); Calcium 8.4 mg/dL (8.5-10.1); Chloride 103 mmol/L (98-107); Glucose 82 mg/dL (70-100); Magnesium 1.7 mg/dL (1.8-2.4); Potassium 3.5 mmol/L (3.5-5.1); Sodium 141 mmol/L (136-145)
[2018-05-22 07:26] LABS: ALT 73 U/L (12-78); AST 35 U/L (15-37); Alkaline Phosphatase 81 U/L (46-116); Bilirubin, Direct 0.23 mg/dL (0.00-0.20); Bilirubin, Total 1.1 mg/dL (0.2-1.0)
[2018-05-22] MEDS: Tamsulosin 0.4 MG CAPCR 0.8 MG PO (08:49)
[2018-05-22] MEDS: buPROPion-XL 150 MG TABCR PO (08:49)
[2018-05-22] MEDS: Docusate Sodium 100 MG CAP PO ×3 (08:49→20:03)
--- NOTE | 2018-05-22 08:58 | CMPROGNOTE_ITS ---
- If Service Date Differs Date of service: 05/22/18 Time of Service: 08:58 Care Management Progress Note S/O:LA NENA met with Danie at the bedside he continues to be treated for ETOH withdrawal. LA NENA provided Danie with a lap top to view online groups for AA support. He is considering his options for attending meetings in the community. CM provided patient with contact information for [facility]. He does have a therapist he plans to follow up with and he states he is committed to sobriety. He does not want inpatient treatment. He continues to be treated for pain r/t pancreatitis. Danie continues to need a significant amount support while he is in the hospital. He will need to follow up with upon discharge to obtain his next prescription for Suboxone. LA NENA did contact Christina Sanchez and requested she provide support to Danie and review continue plan for substance abuse treatment. A: Danie is a 53 year old male with a history of substance abuse, admitted with Acute pancreatitis, acute etoh withdrawal P: Danie is currently receiving IV fluids, and IV pain control. He is currently being assessed for alcohol withdrawal and being cared for in the ICU. No change in status today. He will return home when medically ready per provider with outpatient supports. CM referred patient to [facility] for resources.
[2018-05-22] MEDS: MAGNESIUM SULFATE 2 GM/50 ML BAG IVPB (09:05)
--- NOTE | 2018-05-22 14:38 | DI.CT_ITS ---
SYMPTOMS/DIAGNOSIS: PANCREATITIS, NOT IMPROVING CT SCAN OF THE ABDOMEN: CT scan of the abdomen was performed following the uneventful administration of intravenous contrast and oral contrast material. Comparison CT scan is 05/17/18. No acute findings are seen in the lung bases. The liver is normal in size. No hepatic mass is seen. The patient is status post cholecystectomy. No biliary ductal dilatation is seen. The pancreas and peripancreatic soft tissues are unremarkable. No peripancreatic fluid collections are seen. The edema seen previously around the head of the pancreas has resolved. The adrenal glands are unremarkable as is the spleen. There are left renal cysts again noted. The kidneys show normal and symmetric enhancement. No suspicious solid renal masses or obstruction is identified. The aorta is of normal caliber. No significant abdominal adenopathy, ascites or pneumoperitoneum is present. The bowel shows no evidence of obstruction or inflammation. Degenerative changes are seen in the spine. IMPRESSION: 1. By CT scan resolution of the peripancreatic edema. No peripancreatic inflammatory changes or fluid collections are seen. There is no biliary ductal dilatation. 2. No evidence of pneumoperitoneum or ascites. 3. Status post cholecystectomy.
[2018-05-22] MEDS: Omnipaque 350 MG/ML 100 ML BTL IJ (15:41)
[2018-05-22] MEDS: HYDROmorphone 2 MG/ML VIAL IVP ×5 (16:55→23:26)
--- NOTE | 2018-05-22 18:25 | W.PM.PROGNOT ---
Date of Service Date of service: 05/22/18 Time of Service: 15:15 Assessment and Plan (1) Acute alcoholic pancreatitis: Current visit: Yes Status: Acute CT today with resolution of pancreatitis. I suspect that the patient's abdominal pain may now be due to opioid withdrawal. Will trial advancing diet. If pain worsens, would consider an EGD. (2) Alcoholic hepatitis: Current visit: Yes Status: Acute Mild, nearly resolved, prognosis good. No role for prednisolone. Alcohol abstinence counselled. (3) History of narcotic addiction: Current visit: Yes Status: Chronic Suboxone on hold while the patient is on dilaudid - consider switching back to suboxone tomorrow. (4) Alcoholism: Current visit: Yes Status: Chronic with acute alcohol withdrawal - continue CIWA, banana bag, start to taper scheduled oxazapam. Continue prn ativan. (5) GERD (gastroesophageal reflux disease): Current visit: Yes Status: Chronic continue PPI (6) Urinary retention: Current visit: Yes Status: Acute passed voiding trial. (7) Thrombocytopenia: Current visit: Yes Status: Chronic Lovenox on hold. HIT panel pending. (8) Discharge planning issues: Current visit: Yes Status: Acute Patient is now not sure about inpatient substance abuse rehab. (9) DVT prophylaxis: Current visit: Yes Status: Acute Lovenox d/c'ed due to decreasing platelet count. SCDs + OSKAR stockings. Subjective Interval history since last seen: complains of abdominal pain, a little bit better than when he first came in. Complains of some nausea. Denies dizziness, chest pain, shortness of breath. Reports feeling depressed. Exam Narrative Exam Narrative: General: Middle aged male, sitting up in bed, uncomfortable Neurological: A&Ox3, no focal deficits, not tremulous Psychiatric: appears depressed, anxious Skin: no bruising/rashes HEENT: EOMI, MMM, no JVD Cardiovascular: RRR, no m/r/g Lungs: CTAB Gastrointestinal: abdomen soft, tender in epigastrium Extremities: no edema/clubbing/cyanosis of BLE's Objective Objective Clinical Data: Abnormal lab results 05/22/18 05/22/18 05/22/18 Range/Units 06:30 06:30 06:30 WBC 3.35 L (4.4-10.8) k/cumm RBC 4.10 L (4.50-6.00) m/cumm Hgb 12.6 L (13.5-17.5) g/dL Hct 38.3 L (40.0-50.0) % Plt Count 122 L (130-400) x1000/uL Calcium 8.4 L (8.5-10.1) mg/dL Magnesium 1.7 L (1.8-2.4) mg/dL Total Bilirubin 1.1 H (0.2-1.0) mg/dL Conjugated Bilirubin 0.23 H (0.00-0.20) mg/dL Total Protein 6.0 L (6.4-8.2) g/dL Albumin 3.0 L (3.4-5.0) g/dL Vital Signs Temperature 36.4 C L 05/22/18 16:00 Temperature Source Temporal Artery Scan 05/22/18 16:00 Pulse 57 L 05/22/18 16:00 Pulse Rhythm Regular 05/20/18 08:15 Pulse 61 05/22/18 18:00 Respiratory Rate 17 05/22/18 18:00 Respiratory Effort 05/22/18 16:00 Respiratory Depth Normal 05/22/18 16:00 Respiratory Pattern Normal 05/22/18 16:00 Blood Pressure 150/90 H 05/22/18 16:00 Blood Pressure Mean 110 05/22/18 16:00 Blood Pressure Position Sitting 05/22/18 16:00 Pulse Oximetry 99 05/22/18 16:00 Oxygen Delivery Method Room Air 05/22/18 16:00 Oxygen Flow Rate 0 05/22/18 16:00 Pain Level 7 05/22/18 16:55 Comment 05/17/18 19:19 Intake & Output 05/21/18 05/22/18 05/22/18 23:59 11:59 23:59 Intake Total 2153.7 / 2153.7 2115.0 / 2115.0 1361.2 / 1361.2 Output Total 1825 / 1825 1425 / 1425 1000 / 1000 Balance 328.7 / 328.7 690.0 / 690.0 361.2 / 361.2 Weight 89.6 kg Intake: IV 2063.7 / 2063.7 1915.0 / 1915.0 1011.2 / 1011.2 Oral 90 / 90 200 / 200 350 / 350 Output: Urine 1825 / 1825 1425 / 1425 1000 / 1000 Other: Urine Color Yellow Pale Pale Yellow Yellow Urine Appearance Clear Clear Clear Urine Odor None None Comment Continent void to urinal. voids to urinal voids to urinal Voiding Methods Urinal Urinal Urinal Laboratory Results WBC 3.35 k/cumm (4.4-10.8) L 05/22/18 06:30 RBC 4.10 m/cumm (4.50-6.00) L 05/22/18 06:30 Hgb 12.6 g/dL (13.5-17.5) L 05/22/18 06:30 Hct 38.3 % (40.0-50.0) L 05/22/18 06:30 MCV 93.4 fL (80-95) 05/22/18 06:30 MCH 30.7 pg (27.0-33.0) 05/22/18 06:30 MCHC 32.9 g/dL (32.0-36.0) 05/22/18 06:30 RDW 13.0 % (11.8-14.1) 05/22/18 06:30 Plt Count 122 x1000/uL (130-400) L 05/22/18 06:30 MPV 10.9 fL (8.0-11.0) 05/22/18 06:30 Immature Gran % 0.3 05/22/18 06:30 Neutrophils % 47.1 05/22/18 06:30 Lymphocytes % 37.9 05/22/18 06:30 Monocytes % 7.5 05/22/18 06:30 Eosinophils % 6.9 05/22/18 06:30 Basophils % 0.3 05/22/18 06:30 Absolute Neutrophils 1.58 k/cumm (1.2-6.7) 05/22/18 06:30 Absolute Lymphocytes 1.27 k/cumm (1.2-3.4) 05/22/18 06:30 Absolute Monocytes 0.25 k/cumm (0.11-0.7) 05/22/18 06:30 Absolute Eosinophils 0.23 k/cumm (0.0-0.7) 05/22/18 06:30 Absolute Basophils 0.01 k/cumm (0.0-0.2) 05/22/18 06:30 PT 9.6 sec (9.3-10.8) 05/18/18 07:38 INR 1.0 (1.0-3.5) 05/18/18 07:38 Sodium 141 mmol/L (136-145) 05/22/18 06:30 Potassium 3.5 mmol/L (3.5-5.1) 05/22/18 06:30 Chloride 103 mmol/L (98-107) 05/22/18 06:30 Carbon Dioxide 30.3 mmol/L (21.0-32.0) 05/22/18 06:30 Anion Gap 7.7 mmol/L (3-11) 05/22/18 06:30 BUN 7 mg/dL (7-18) 05/22/18 06:30 Creatinine 1.04 mg/dL (0.70-1.30) 05/22/18 06:30 Estimated GFR/1.73 m2 >= 60.00 (mL/min/1.73m2) 05/22/18 06:30 Glucose 82 mg/dL (70-100) 05/22/18 06:30 Calcium 8.4 mg/dL (8.5-10.1) L 05/22/18 06:30 Phosphorus 3.7 mg/dL (2.6-4.7) 05/18/18 06:29 Magnesium 1.7 mg/dL (1.8-2.4) L 05/22/18 06:30 Total Bilirubin 1.1 mg/dL (0.2-1.0) H 05/22/18 06:30 Conjugated Bilirubin 0.23 mg/dL (0.00-0.20) H 05/22/18 06:30 AST 35 U/L (15-37) 05/22/18 06:30 ALT 73 U/L (12-78) 05/22/18 06:30 Alkaline Phosphatase 81 U/L (46-116) 05/22/18 06:30 Troponin I < 0.02 ng/mL (0.00-0.06) 05/18/18 06:29 Total Protein 6.0 g/dL (6.4-8.2) L 05/22/18 06:30 Albumin 3.0 g/dL (3.4-5.0) L 05/22/18 06:30 Lipase 925 U/L (73-393) H 05/18/18 06:29 TSH 1.63 uIU/mL (0.358-3.74) 05/17/18 17:15 Urine Color Yellow (Yellow) 05/17/18 17:45 Urine Clarity Clear 05/17/18 17:45 Urine pH 6.0 (5-8) 05/17/18 17:45 Ur Specific [place] <= 1.005 (1.005-1.025) 05/17/18 17:45 Urine Protein Negative mg/dL (Negative) 05/17/18 17:45 Urine Ketones Negative mg/dL (Negative) 05/17/18 17:45 Urine Blood Small (Negative) H 05/17/18 17:45 Urine Nitrite Negative (Negative) 05/17/18 17:45 Urine Bilirubin Negative (Negative) 05/17/18 17:45 Urine Urobilinogen 1.0 EU/dL (Up TO 0.2) H 05/17/18 17:45 Ur Leukocyte Esterase Negative (Negative) 05/17/18 17:45 Urine RBC 0-2 (0-2) 05/17/18 17:45 Urine WBC Negative HPF (0-5) 05/17/18 17:45 Ur Epithelial Cells Negative HPF (Negative) 05/17/18 17:45 Urine Crystals Negative HPF (Negative) 05/17/18 17:45 Urine Bacteria Negative HPF (Negative) 05/17/18 17:45 Urine Casts Negative LPF (Negative) 05/17/18 17:45 Urine Mucus Negative (Negative) 05/17/18 17:45 Urine Other Negative (Negative) 05/17/18 17:45 Ur Culture Indicated? No 05/17/18 17:45 Urine Glucose Negative mg/dL (Negative) 05/17/18 17:45 Urine Opiates Screen Negative (Negative) 05/17/18 17:45 Urine Methadone Screen Negative (Negative) 05/17/18 17:45 Ur Barbiturates Screen Negative (Negative) 05/17/18 17:45 Ur Tricyclics Screen Negative (Negative) 05/17/18 17:45 Ur Amphetamines Screen Negative (Negative) 05/17/18 17:45 U Benzodiazepines Scrn Negative (Negative) 05/17/18 17:45 Urine Cocaine Screen Negative (Negative) 05/17/18 17:45 Ur THC Screen Negative (Negative) 05/17/18 17:45 Ethyl Alcohol 28.9 mg/dL (<3) 05/18/18 06:29 CT abdomen with IV and PO contrast: 1. By CT scan resolution of the peripancreatic edema. No peripancreatic inflammatory changes or fluid collections are seen. There is no biliary ductal dilatation. 2. No evidence of pneumoperitoneum or ascites. 3. Status post cholecystectomy.
[2018-05-22] MEDS: Pantoprazole 40 MG VIAL IVP (21:52)
[2018-05-23] VITALS (27 sets, daily range): BP systolic 136–172; BP diastolic 91–95; PULSE 40–96; RESP 9–27; TEMP 36.7–38; O2SAT 95–100
[2018-05-23] MEDS: HYDROmorphone 2 MG/ML VIAL IVP ×8 (03:40→22:39)
[2018-05-23 06:12] LABS: Abs Immature Grans 0.01 k/cumm (0.0-0.09); Absolute Basophil Count 0.01 k/cumm (0.0-0.2); Absolute Eosinophil Count 0.23 k/cumm (0.0-0.7); Absolute Lymphocyte Count 1.49 k/cumm (1.2-3.4); Absolute Neutrophil Count 2.42 k/cumm (1.2-6.7); Basophils % 0.2; Eosinophils % 5.2; HCT 40.5 % (40.0-50.0); HGB 13.7 g/dL (13.5-17.5); Immature Grans % 0.2; Lymphocytes % 33.4; Mean Corp. HGB Concentration 33.8 g/dL (32.0-36.0); Mean Corpuscular Hemoglobin 31.1 pg (27.0-33.0); Mean Platelet Volume 10.4 fL (8.0-11.0); Monocytes % 6.7; Neutrophils % 54.3; Platelet Count 143 x1000/uL (130-400); RBC Distribution Width 13.2 % (11.8-14.1); White Blood Cell Count 4.46 k/cumm (4.4-10.8)
[2018-05-23] MEDS: LORazepam 1 MG TAB PO/SL ×4 (06:14→20:39)
[2018-05-23] MEDS: Lactated Ringers 1,000 ML 150 ML IV (06:16)
[2018-05-23 06:26] LABS: ALT 76 U/L (12-78); AST 35 U/L (15-37); Albumin 3.6 g/dL (3.4-5.0); Alkaline Phosphatase 90 U/L (46-116); Anion Gap 12.1 mmol/L (3-11); BUN 7 mg/dL (7-18); Bilirubin, Direct 0.32 mg/dL (0.00-0.20); Bilirubin, Total 1.2 mg/dL (0.2-1.0); CO2 27.9 mmol/L (21.0-32.0); CREATININE 1.18 mg/dL (0.70-1.30); Calcium 8.4 mg/dL (8.5-10.1); Chloride 99 mmol/L (98-107); Glucose 83 mg/dL (70-100); Magnesium 1.9 mg/dL (1.8-2.4); Potassium 3.7 mmol/L (3.5-5.1); Sodium 139 mmol/L (136-145); Total Protein 7.1 g/dL (6.4-8.2)
[2018-05-23] MEDS: buPROPion-XL 150 MG TABCR PO (08:38)
[2018-05-23] MEDS: Tamsulosin 0.4 MG CAPCR 0.8 MG PO (08:39)
[2018-05-23] MEDS: oxyCODONE 10 MG TAB PO ×2 (10:40→15:55)
--- NOTE | 2018-05-23 12:24 | PGE_ITS ---
Date of Service Date of service: 05/23/18 Time of Service: 09:18 Assessment and Plan (1) Acute alcoholic pancreatitis: Current visit: Yes Status: Acute CT yesterday with resolution of pancreatitis radiographically. I opioid withdrawal playing a large part in the ongoing abdominal pain. See below. Advancing diet this morning. And on IV fluid rate. (2) Alcoholic hepatitis: Current visit: Yes Status: Acute Improved. During laboratory examinations from previous visits at this visit, I do not see evidence of cirrhosis. It does appear that the thrombocytopenia was acute. (3) History of narcotic addiction: Current visit: Yes Status: Chronic Has been stable on Suboxone. Given the increased pain with pancreatitis, we are managing with opiate agonists (4) Alcoholism: Current visit: Yes Status: Chronic with acute alcohol withdrawal - continue CIWA, transition banana bag to oral vitamin supplements. Continue to taper scheduled oxazapam. Continue prn ativan. We did discuss treatment plan for his alcohol use disorder. He is not interested in disulfiram and is not a candidate for naltrexone given his therapy with morphine. We discussed acamprosate as an option in the future. He is uncertain about inpatient rehab, but does have outpatient therapy, and is cleared his goal for abstinence. (5) GERD (gastroesophageal reflux disease): Current visit: Yes Status: Chronic continue PPI (6) Urinary retention: Current visit: Yes Status: Acute passed voiding trial, still with lower urinary lower urinary tract obstructive symptoms. Continue tamsulosin and monitor. (7) Thrombocytopenia: Current visit: Yes Status: Chronic Lovenox on hold. HIT panel still pending. Now ambulatory (8) Discharge planning issues: Current visit: Yes Status: Acute Patient is able to eat today without difficulty, will downgrade him to medical floor status. Patient is now not sure about inpatient substance abuse rehab. He does have a good relationship with his outpatient therapist and is interested in on my usual support groups. (9) DVT prophylaxis: Current visit: Yes Status: Acute Lovenox d/c'ed due to decreasing platelet count. SCDs + OSKAR stockings. Subjective Patient reports: denies blood in stool, shortness of breath and fever Interval history since last seen: Patient continues to complain of epigastric pain, but he is hungry and denies nausea or vomiting. The pain does improve with hydromorphone IV. He has not had anything but fluids orally, but is tolerating clear fluids well. Did have one loose stool this morning. No seizures or other abnormal movements. Patient desires to maintain full abstinence from alcohol. He thinks medicinal marijuana and ongoing counseling as an outpatient will help him with this goal. He has a history of 3 years of sobriety in the past. He is also looking into online support groups. He states he has been stable on Suboxone for 3 years without relapse to opiate use. Exam Narrative Exam Narrative: General: A&O, sitting up in bed, NAD Neurological: A&Ox3, no focal deficits, not tremulous Psychiatric: appears depressed, anxious Skin: no bruising/rashes HEENT: MMM, no icterus Cardiovascular: RRR, no m/r/g Lungs: CTAB Gastrointestinal: abdomen soft, tender in epigastrium, no masses or rebound Extremities: no edema/clubbing/cyanosis of BLE's Objective Objective Clinical Data: Abnormal lab results 05/23/18 05/23/18 Range/Units 06:01 06:01 RBC 4.40 L (4.50-6.00) m/cumm Anion Gap 12.1 H (3-11) mmol/L Calcium 8.4 L (8.5-10.1) mg/dL Total Bilirubin 1.2 H (0.2-1.0) mg/dL Conjugated Bilirubin 0.32 H (0.00-0.20) mg/dL Vital Signs Temperature 37 C 05/23/18 08:39 Temperature Source Temporal Artery Scan 05/23/18 08:06 Pulse 54 L 05/23/18 08:06 Pulse Rhythm Regular 05/20/18 08:15 Pulse 75 05/23/18 10:00 Respiratory Rate 16 05/23/18 10:00 Respiratory Effort 05/23/18 08:06 Respiratory Depth Normal 05/23/18 08:06 Respiratory Pattern Normal 05/23/18 03:23 Blood Pressure 145/93 H 05/23/18 08:06 Blood Pressure Mean 110 05/23/18 08:06 Blood Pressure Position Sitting 05/23/18 08:06 Pulse Oximetry 100 05/23/18 08:06 Oxygen Delivery Method Room Air 05/23/18 08:06 Oxygen Flow Rate 0 05/23/18 08:06 Pain Level 7 05/23/18 10:40 Comment 05/17/18 19:19 Intake & Output 05/22/18 05/23/18 05/23/18 23:59 11:59 23:59 Intake Total 2271.2 / 2271.2 2251.25 / 2251.25 Output Total 1600 / 1600 3995 / 3995 Balance 671.2 / 671.2 -1743.75 / -1743.75 Weight 87.1 kg Intake: IV 1921.2 / 1921.2 1531.25 / 1531.25 Oral 350 / 350 720 / 720 Output: Urine 1600 / 1600 3995 / 3995 Other: Urine Color Yellow Yellow Urine Appearance Clear Clear Urine Odor None None Comment voids to urinal Reports he has prostate problems. Stands to void and has difficulty starting his stream. pH of 7, SG of 1.010 by chemstrip. Voided 275 cc at this time. Stool Characteristics Liquid Brown Voiding Methods Urinal Urinal Laboratory Results WBC 4.46 k/cumm (4.4-10.8) D 05/23/18 06:01 RBC 4.40 m/cumm (4.50-6.00) L 05/23/18 06:01 Hgb 13.7 g/dL (13.5-17.5) 05/23/18 06:01 Hct 40.5 % (40.0-50.0) 05/23/18 06:01 MCV 92.0 fL (80-95) 05/23/18 06:01 MCH 31.1 pg (27.0-33.0) 05/23/18 06:01 MCHC 33.8 g/dL (32.0-36.0) 05/23/18 06:01 RDW 13.2 % (11.8-14.1) 05/23/18 06:01 Plt Count 143 x1000/uL (130-400) 05/23/18 06:01 MPV 10.4 fL (8.0-11.0) 05/23/18 06:01 Immature Gran % 0.2 05/23/18 06:01 Neutrophils % 54.3 05/23/18 06:01 Lymphocytes % 33.4 05/23/18 06:01 Monocytes % 6.7 05/23/18 06:01 Eosinophils % 5.2 05/23/18 06:01 Basophils % 0.2 05/23/18 06:01 Absolute Neutrophils 2.42 k/cumm (1.2-6.7) 05/23/18 06:01 Absolute Lymphocytes 1.49 k/cumm (1.2-3.4) 05/23/18 06:01 Absolute Monocytes 0.30 k/cumm (0.11-0.7) 05/23/18 06:01 Absolute Eosinophils 0.23 k/cumm (0.0-0.7) 05/23/18 06:01 Absolute Basophils 0.01 k/cumm (0.0-0.2) 05/23/18 06:01 PT 9.6 sec (9.3-10.8) 05/18/18 07:38 INR 1.0 (1.0-3.5) 05/18/18 07:38 Sodium 139 mmol/L (136-145) 05/23/18 06:01 Potassium 3.7 mmol/L (3.5-5.1) 05/23/18 06:01 Chloride 99 mmol/L (98-107) 05/23/18 06:01 Carbon Dioxide 27.9 mmol/L (21.0-32.0) 05/23/18 06:01 Anion Gap 12.1 mmol/L (3-11) H 05/23/18 06:01 BUN 7 mg/dL (7-18) 05/23/18 06:01 Creatinine 1.18 mg/dL (0.70-1.30) 05/23/18 06:01 Estimated GFR/1.73 m2 >= 60.00 (mL/min/1.73m2) 05/23/18 06:01 Glucose 83 mg/dL (70-100) 05/23/18 06:01 Calcium 8.4 mg/dL (8.5-10.1) L 05/23/18 06:01 Phosphorus 3.7 mg/dL (2.6-4.7) 05/18/18 06:29 Magnesium 1.9 mg/dL (1.8-2.4) 05/23/18 06:01 Total Bilirubin 1.2 mg/dL (0.2-1.0) H 05/23/18 06:01 Conjugated Bilirubin 0.32 mg/dL (0.00-0.20) H 05/23/18 06:01 AST 35 U/L (15-37) 05/23/18 06:01 ALT 76 U/L (12-78) 05/23/18 06:01 Alkaline Phosphatase 90 U/L (46-116) 05/23/18 06:01 Troponin I < 0.02 ng/mL (0.00-0.06) 05/18/18 06:29 Total Protein 7.1 g/dL (6.4-8.2) 05/23/18 06:01 Albumin 3.6 g/dL (3.4-5.0) 05/23/18 06:01 Lipase 925 U/L (73-393) H 05/18/18 06:29 TSH 1.63 uIU/mL (0.358-3.74) 05/17/18 17:15 Urine Color Yellow (Yellow) 05/17/18 17:45 Urine Clarity Clear 05/17/18 17:45 Urine pH 6.0 (5-8) 05/17/18 17:45 Ur Specific [place] <= 1.005 (1.005-1.025) 05/17/18 17:45 Urine Protein Negative mg/dL (Negative) 05/17/18 17:45 Urine Ketones Negative mg/dL (Negative) 05/17/18 17:45 Urine Blood Small (Negative) H 05/17/18 17:45 Urine Nitrite Negative (Negative) 05/17/18 17:45 Urine Bilirubin Negative (Negative) 05/17/18 17:45 Urine Urobilinogen 1.0 EU/dL (Up TO 0.2) H 05/17/18 17:45 Ur Leukocyte Esterase Negative (Negative) 05/17/18 17:45 Urine RBC 0-2 (0-2) 05/17/18 17:45 Urine WBC Negative HPF (0-5) 05/17/18 17:45 Ur Epithelial Cells Negative HPF (Negative) 05/17/18 17:45 Urine Crystals Negative HPF (Negative) 05/17/18 17:45 Urine Bacteria Negative HPF (Negative) 05/17/18 17:45 Urine Casts Negative LPF (Negative) 05/17/18 17:45 Urine Mucus Negative (Negative) 05/17/18 17:45 Urine Other Negative (Negative) 05/17/18 17:45 Ur Culture Indicated? No 05/17/18 17:45 Urine Glucose Negative mg/dL (Negative) 05/17/18 17:45 Urine Opiates Screen Negative (Negative) 05/17/18 17:45 Urine Methadone Screen Negative (Negative) 05/17/18 17:45 Ur Barbiturates Screen Negative (Negative) 05/17/18 17:45 Ur Tricyclics Screen Negative (Negative) 05/17/18 17:45 Ur Amphetamines Screen Negative (Negative) 05/17/18 17:45 U Benzodiazepines Scrn Negative (Negative) 05/17/18 17:45 Urine Cocaine Screen Negative (Negative) 05/17/18 17:45 Ur THC Screen Negative (Negative) 05/17/18 17:45 Ethyl Alcohol 28.9 mg/dL (<3) 05/18/18 06:29
--- NOTE | 2018-05-23 13:48 | PDOC.CMPRO ---
Care Management Progress Note S/O: Danie was sitting up in bed and using the laptop computer. Confirmed that he plans to continue with his OP Therapist and the Suboxone program. Plans to attend local support group meetings. Voiced concerns about his Suboxone prescription and was ressured that Dr. Carlos would continue to prescribe as his PCP. Had questions about the CT scan results and was waiting for Dr. Talley to stop in and answer his remaining questions. A: Danie is a 53 year old male with a history of substance abuse, admitted with Acute pancreatitis, acute etoh withdrawal P: Danie will return home and no home service is needed at this time.
[2018-05-23] MEDS: Pantoprazole 40 MG VIAL IVP (20:34)
[2018-05-23] MEDS: Oxazepam 10 MG CAP PO (20:34)
[2018-05-23] MEDS: Normal Saline Flush 10 ML SYR IVP (20:34)
[2018-05-23] MEDS: Lactated Ringers 1,000 ML 75 ML IV (22:01)
[2018-05-24] VITALS (18 sets, daily range): BP systolic 137–168; BP diastolic 80–106; PULSE 53–78; RESP 11–20; TEMP 36.3–37.6; O2SAT 96–99
[2018-05-24] MEDS: HYDROmorphone 2 MG/ML VIAL IVP (01:04)
[2018-05-24] MEDS: Zolpidem 10 MG TAB PO ×2 (02:04→21:59)
[2018-05-24] MEDS: Tamsulosin 0.4 MG CAPCR 0.8 MG PO (10:00)
[2018-05-24] MEDS: oxyCODONE 10 MG TAB PO ×2 (10:01→11:00)
[2018-05-24] MEDS: buPROPion-XL 150 MG TABCR PO (10:01)
[2018-05-24] MEDS: Docusate Sodium 100 MG CAP PO ×2 (10:01→19:32)
[2018-05-24] MEDS: Oxazepam 10 MG CAP PO (10:01)
--- NOTE | 2018-05-24 10:10 | PDOC.CMPRO ---
Care Management Progress Note S/O Lying in bed. States his head is clearer today but his stomach still hurts. Still plans to follow up with his OP Counselor and attend local support groups. Remains anxious about his Suboxone prescription and reassured that Dr. Carlos, his PCP, will continue to order the medication. A: 53 y.o. male admitted for acute pancreatitis and alcohol intoxication remains in ICU and has bee going through alcohol withdrawal. P: Danie will return home with his , Pat, when medically cleared for discharge. Pat will transport by private car.
--- NOTE | 2018-05-24 11:49 | PGE_ITS ---
Date of Service Date of service: 05/24/18 Time of Service: 11:08 Assessment and Plan (1) Acute alcoholic pancreatitis: Current visit: Yes Status: Acute Hadley continues to struggle with epigastric pain. His diet has progressed, but he still eating minimally. He is tolerating fluids. We will look to progress the diet today. I actually do not think that opioid withdrawal playing a large part in the ongoing abdominal pain, but his opiate dependence is clearly making him less responsive to the oxycodone dosage. We will increase the dose in an effort to get him off the IV pain medication. The IV fluid. (2) History of narcotic addiction: Current visit: Yes Status: Chronic Has been stable on Suboxone at the spoke level for years. Given the increased pain with pancreatitis, we are managing with opiate agonists. (3) Alcoholism: Current visit: Yes Status: Chronic No longer scoring highly on CIWA, so oxazepam was discontinued today as a scheduled medication. Today I discussed the treatment plan for his alcohol use disorder with Mr. Dinh father after he gave consent. His father is disappointed he is not interested in returning to inpatient rehab. He is concerned that the patient's impression that there is no marijuana will help him stay sober from alcohol is misguided. I encouraged him to remain engaged and Mr. Dinh care and to express his concerns directly with his son. I also doubt that adding medicinal marijuana will improve his chances of ongoing sobriety. We will certainly try to place him if he changed his mind and would like to enter inpatient rehab upon discharge. For now, he does have outpatient therapy, and is clear about his goal for abstinence. (4) GERD (gastroesophageal reflux disease): Current visit: Yes Status: Chronic continue PPI (5) Urinary retention: Current visit: Yes Status: Acute passed voiding trial, still with lower urinary lower urinary tract obstructive symptoms. Continue tamsulosin and monitor. (6) Discharge planning issues: Current visit: Yes Status: Acute Transfer to medical floor status. The above for discussion regarding rehab. (7) DVT prophylaxis: Current visit: Yes Status: Acute Lovenox d/c'ed due to decreasing platelet count. This has improved. HIT panel pending. SCDs + OSKAR stockings. Subjective Patient reports: still having pain; denies diarrhea, vomiting, shortness of breath and fever Interval history since last seen: Hadley is still having some nominal pain that is epigastric. He was able to tolerate some solids, but not much last night. He slept through breakfast this morning. He states that hydrocodone has minimal effect on his pain, but he would like to be able to get off the IV pain medication so he can go home. He denies feeling shaky, and his CIWA score on the overnight shift was 2. Exam Narrative Exam Narrative: General: A&O, sitting up in bed, NAD. Not yawning or nodding off this morning. Neurological: A&Ox3, no focal deficits, not tremulous. Rules are midsized about 4 mm bilaterally and reactive in a dark room. Psychiatric: Affect depressed, no hallucinations, normal thought process Skin: no bruising/rashes HEENT: MMM, no icterus Cardiovascular: RRR, no m/r/g Lungs: CTAB Gastrointestinal: abdomen soft, tender in epigastrium, no masses or rebound Extremities: no edema/clubbing/cyanosis of BLE's Objective Objective Clinical Data: Vital Signs Temperature 37.6 C H 05/24/18 10:37 Temperature Source Temporal Artery Scan 05/24/18 10:37 Pulse 59 L 05/24/18 09:52 Pulse Rhythm Regular 05/20/18 08:15 Pulse 65 05/24/18 10:00 Respiratory Rate 19 05/24/18 10:00 Respiratory Effort 05/24/18 10:37 Respiratory Depth Normal 05/24/18 10:37 Respiratory Pattern Normal 05/24/18 10:37 Blood Pressure 168/104 H 05/24/18 09:52 Blood Pressure Mean 121 05/24/18 09:52 Blood Pressure Position Supine 05/23/18 20:15 Pulse Oximetry 97 05/24/18 09:50 Oxygen Delivery Method Room Air 05/24/18 10:37 Oxygen Flow Rate 0 05/24/18 10:37 Pain Level 5 05/24/18 11:00 Comment 05/17/18 19:19 Intake & Output 05/23/18 05/23/18 05/24/18 11:59 23:59 11:59 Intake Total 2251.25 / 2251.25 1968.7 / 1968.7 150 / 150 Output Total 3995 / 3995 3925 / 3925 2175 / 2175 Balance -1743.75 / -1742.75 -1955..3 -2024 Weight 87.1 kg 86.6 kg Intake: IV 1531.25 / 1531.25 1418.7 / 1418.7 Oral 720 / 720 550 / 550 150 / 150 Output: Urine 3995 / 3995 3425 / 3425 2175 / 2175 Stool 500 / 500 Other: Urine Color Yellow Yellow Yellow Urine Appearance Clear Clear Clear Urine Odor None None Comment Reports he has prostate problems. Stands to void and has difficulty starting his stream. pH of 7, SG of 1.010 by chemstrip. Voided 275 cc at this time. using urinal at bedside using urinal at bedside Stool Occult Blood Negative Stool Characteristics Liquid Liquid Brown Voiding Methods Urinal Urinal Urinal Laboratory Results WBC 4.46 k/cumm (4.4-10.8) D 05/23/18 06:01 RBC 4.40 m/cumm (4.50-6.00) L 05/23/18 06:01 Hgb 13.7 g/dL (13.5-17.5) 05/23/18 06:01 Hct 40.5 % (40.0-50.0) 05/23/18 06:01 MCV 92.0 fL (80-95) 05/23/18 06:01 MCH 31.1 pg (27.0-33.0) 05/23/18 06:01 MCHC 33.8 g/dL (32.0-36.0) 05/23/18 06:01 RDW 13.2 % (11.8-14.1) 05/23/18 06:01 Plt Count 143 x1000/uL (130-400) 05/23/18 06:01 MPV 10.4 fL (8.0-11.0) 05/23/18 06:01 Immature Gran % 0.2 05/23/18 06:01 Neutrophils % 54.3 05/23/18 06:01 Lymphocytes % 33.4 05/23/18 06:01 Monocytes % 6.7 05/23/18 06:01 Eosinophils % 5.2 05/23/18 06:01 Basophils % 0.2 05/23/18 06:01 Absolute Neutrophils 2.42 k/cumm (1.2-6.7) 05/23/18 06:01 Absolute Lymphocytes 1.49 k/cumm (1.2-3.4) 05/23/18 06:01 Absolute Monocytes 0.30 k/cumm (0.11-0.7) 05/23/18 06:01 Absolute Eosinophils 0.23 k/cumm (0.0-0.7) 05/23/18 06:01 Absolute Basophils 0.01 k/cumm (0.0-0.2) 05/23/18 06:01 PT 9.6 sec (9.3-10.8) 05/18/18 07:38 INR 1.0 (1.0-3.5) 05/18/18 07:38 Sodium 139 mmol/L (136-145) 05/23/18 06:01 Potassium 3.7 mmol/L (3.5-5.1) 05/23/18 06:01 Chloride 99 mmol/L (98-107) 05/23/18 06:01 Carbon Dioxide 27.9 mmol/L (21.0-32.0) 05/23/18 06:01 Anion Gap 12.1 mmol/L (3-11) H 05/23/18 06:01 BUN 7 mg/dL (7-18) 05/23/18 06:01 Creatinine 1.18 mg/dL (0.70-1.30) 05/23/18 06:01 Estimated GFR/1.73 m2 >= 60.00 (mL/min/1.73m2) 05/23/18 06:01 Glucose 83 mg/dL (70-100) 05/23/18 06:01 Calcium 8.4 mg/dL (8.5-10.1) L 05/23/18 06:01 Phosphorus 3.7 mg/dL (2.6-4.7) 05/18/18 06:29 Magnesium 1.9 mg/dL (1.8-2.4) 05/23/18 06:01 Total Bilirubin 1.2 mg/dL (0.2-1.0) H 05/23/18 06:01 Conjugated Bilirubin 0.32 mg/dL (0.00-0.20) H 05/23/18 06:01 AST 35 U/L (15-37) 05/23/18 06:01 ALT 76 U/L (12-78) 05/23/18 06:01 Alkaline Phosphatase 90 U/L (46-116) 05/23/18 06:01 Troponin I < 0.02 ng/mL (0.00-0.06) 05/18/18 06:29 Total Protein 7.1 g/dL (6.4-8.2) 05/23/18 06:01 Albumin 3.6 g/dL (3.4-5.0) 05/23/18 06:01 Lipase 925 U/L (73-393) H 05/18/18 06:29 TSH 1.63 uIU/mL (0.358-3.74) 05/17/18 17:15 Urine Color Yellow (Yellow) 05/17/18 17:45 Urine Clarity Clear 05/17/18 17:45 Urine pH 6.0 (5-8) 05/17/18 17:45 Ur Specific [place] <= 1.005 (1.005-1.025) 05/17/18 17:45 Urine Protein Negative mg/dL (Negative) 05/17/18 17:45 Urine Ketones Negative mg/dL (Negative) 05/17/18 17:45 Urine Blood Small (Negative) H 05/17/18 17:45 Urine Nitrite Negative (Negative) 05/17/18 17:45 Urine Bilirubin Negative (Negative) 05/17/18 17:45 Urine Urobilinogen 1.0 EU/dL (Up TO 0.2) H 05/17/18 17:45 Ur Leukocyte Esterase Negative (Negative) 05/17/18 17:45 Urine RBC 0-2 (0-2) 05/17/18 17:45 Urine WBC Negative HPF (0-5) 05/17/18 17:45 Ur Epithelial Cells Negative HPF (Negative) 05/17/18 17:45 Urine Crystals Negative HPF (Negative) 05/17/18 17:45 Urine Bacteria Negative HPF (Negative) 05/17/18 17:45 Urine Casts Negative LPF (Negative) 05/17/18 17:45 Urine Mucus Negative (Negative) 05/17/18 17:45 Urine Other Negative (Negative) 05/17/18 17:45 Ur Culture Indicated? No 05/17/18 17:45 Urine Glucose Negative mg/dL (Negative) 05/17/18 17:45 Urine Opiates Screen Negative (Negative) 05/17/18 17:45 Urine Methadone Screen Negative (Negative) 05/17/18 17:45 Ur Barbiturates Screen Negative (Negative) 05/17/18 17:45 Ur Tricyclics Screen Negative (Negative) 05/17/18 17:45 Ur Amphetamines Screen Negative (Negative) 05/17/18 17:45 U Benzodiazepines Scrn Negative (Negative) 05/17/18 17:45 Urine Cocaine Screen Negative (Negative) 05/17/18 17:45 Ur THC Screen Negative (Negative) 05/17/18 17:45 Ethyl Alcohol 28.9 mg/dL (<3) 05/18/18 06:29
[2018-05-24] MEDS: HYDROmorphone 2 MG/ML VIAL 1 MG IVP ×5 (12:03→21:59)
[2018-05-24] MEDS: Normal Saline Flush 10 ML SYR IVP ×4 (12:07→21:58)
[2018-05-24] MEDS: Acetaminophen 500 MG TAB 1000 MG PO (15:37)
[2018-05-24] MEDS: oxyCODONE 10 MG TAB 20 MG PO ×2 (15:39→19:31)
[2018-05-24] MEDS: Pantoprazole 40 MG VIAL IVP (21:51)
[2018-05-25] MEDS: HYDROmorphone 2 MG/ML VIAL 1 MG IVP ×3 (05:31→15:53)
[2018-05-25] MEDS: Normal Saline Flush 10 ML SYR IVP ×4 (05:32→17:51)
[2018-05-25 07:45] VITALS: BP 143/95; PULSE 65; RESP 16; TEMP 36.8; O2SAT 99
[2018-05-25] MEDS: Acetaminophen 500 MG TAB 1000 MG PO ×3 (07:54→21:28)
[2018-05-25] MEDS: Docusate Sodium 100 MG CAP PO ×3 (07:54→19:35)
[2018-05-25] MEDS: Tamsulosin 0.4 MG CAPCR 0.8 MG PO (07:54)
[2018-05-25] MEDS: buPROPion-XL 150 MG TABCR PO (07:54)
[2018-05-25] MEDS: oxyCODONE 10 MG TAB 20 MG PO (07:55)
[2018-05-25] MEDS: HYDROmorphone 4 MG TAB PO ×6 (09:56→21:29)
--- NOTE | 2018-05-25 12:03 | CMPROGNOTE_ITS ---
- If Service Date Differs Date of service: 05/25/18 Time of Service: 11:51 Care Management Progress Note S/O: LA NENA met with Danie at the bedside he states his pain is not being controlled with oral pain medications. He has a heat pack on his abdomen. He has requested IV pain management to be restated. CM reviewed the plan with Danie. He reports that he will be discharged home when medically ready with his spouse. CM provided him a list of inpatient rehab he is not agreeing to transition to rehab at this time. LA NENA contacted primary care office today and spoke with Feli Sanchez. Danie is due for his Suboxone refill which he takes twice a day. Feli will bring the refill prescription to [facility] in [place] and Danie will be able to obtain after discharge. CM offered support and active listing to provide support to Danie. Danie does not express confidence in his plan for discharge and appears to still be in contemplation related to his decision. A: Danie is a 53 year old male admitted with pancreatitis and acute alcohol intoxication and withdrawal. P:Danie will be discharged home when medically ready per provider. He intends to follow up with his therapist in the community. He will plan to continue his care with for substance abuse treatment. He will plan to return home via private car with his spouse at time of discharge.
[2018-05-25 15:51] VITALS: BP 144/94; PULSE 72; RESP 18; TEMP 36.6; O2SAT 99
--- NOTE | 2018-05-25 16:11 | CHAPLAIN ---
I visited with Danie this morning. He was not interested in a longer conversation, but said he was receiving the help and support he needs.
--- NOTE | 2018-05-25 18:30 | PGE_ITS ---
Date of Service Date of service: 05/25/18 Time of Service: 18:23 Assessment and Plan (1) Acute alcoholic pancreatitis: Current visit: Yes Status: Acute Hadley continues to struggle with epigastric pain, though he is eating better and tolerating fluids. Is anxious about going home. I still do not think he is in overt opioid withdrawal, though I do think his opiate dependence and Suboxone use is clearly making it difficult to manage his pain. He is unhappy with oral hydromorphone, even at doses higher than the equivalent IV dose he was given. I am afraid there is some element of reward seeking in this response. We will stop the IV opioids and managed with oral only. We will watch him overnight. (2) History of narcotic addiction: Current visit: Yes Status: Chronic Has been stable on Suboxone at the spoke level for years. Given the increased pain with pancreatitis, we are managing with opiate agonists. Plan to go back on Suboxone when pain stable. (3) Alcoholism: Current visit: Yes Status: Chronic No longer scoring highly on CIWA, now off the protocol and not getting benzodiazepines. No further signs of alcohol withdrawal His plan is to do AA groups and see his therapist, though is not contacted sponsor. He again declines inpatient rehabilitation, but he feels confident he can stay abstinent from alcohol. (4) GERD (gastroesophageal reflux disease): Current visit: Yes Status: Chronic continue PPI (5) Urinary retention: Current visit: Yes Status: Acute passed voiding trial, still with lower urinary lower urinary tract obstructive symptoms. Continue tamsulosin and monitor. (6) Discharge planning issues: Current visit: Yes Status: Acute Full code. (7) DVT prophylaxis: Current visit: Yes Status: Acute Lovenox d/c'ed due to decreasing platelet count. This has improved. HIT panel still pending. SCDs + OSKAR stockings. Subjective Patient reports: still having pain, tolerating liquids well and tolerating a regular diet; denies diarrhea, blood in stool, vomiting and fever Interval history since last seen: Patient states he still feels terrible. States 4 mg Dilaudid orally does not work as well as even the 1 mg IV. Initially states oxycodone did not work, but then states works better than the Dilaudid orally. He still has the epigastric pain, but is eating a little bit more. Expresses a lot shame about his situation and worried about demands of his work and letting his coworkers down. He does feel confident he will stay sober once he goes home. Exam Narrative Exam Narrative: General: A&O, sitting up in bed, NAD. Not yawning or nodding off. Neurological: A&Ox3, no focal deficits, not tremulous. Pupils are midsized about 4 mm bilaterally and reactive in a dark room. Psychiatric: Affect depressed, no hallucinations, normal thought process Skin: no bruising/rashes HEENT: MMM, no icterus Cardiovascular: RRR, no m/r/g Lungs: CTAB Gastrointestinal: abdomen soft, tender in epigastrium, no masses or rebound Extremities: no edema/clubbing/cyanosis of BLE's Objective Objective Clinical Data: Vital Signs Temperature 36.6 C 05/25/18 15:51 Temperature Source Tympanic 05/25/18 15:51 Pulse 72 05/25/18 15:51 Pulse Rhythm Regular 05/25/18 07:44 Pulse 65 05/24/18 10:00 Respiratory Rate 18 05/25/18 15:51 Respiratory Effort Non-Labored 05/25/18 07:44 Respiratory Depth Normal 05/25/18 07:44 Respiratory Pattern Normal 05/25/18 07:44 Blood Pressure 144/94 H 05/25/18 15:51 Blood Pressure Mean 102 05/24/18 12:10 Blood Pressure Position Supine 05/23/18 20:15 Pulse Oximetry 99 05/25/18 15:51 Oxygen Delivery Method Room Air 05/25/18 15:51 Oxygen Flow Rate 0 05/25/18 15:51 Pain Level 7 05/25/18 18:08 Comment 05/25/18 07:45 Intake & Output 05/24/18 05/25/18 05/25/18 23:59 11:59 23:59 Intake Total 800 / 800 1810 / 1810 870.5 / 870.5 Balance 800 / 800 1810 / 1810 870.5 / 870.5 Intake: IV 1020 / 1020 80.5 / 80.5 Oral 800 / 800 790 / 790 790 / 790 Other: Urine Appearance Clear Comment Void x1 in the toilet. Void x2 in the toilet. Voiding Methods Toilet Toilet Laboratory Results WBC 4.46 k/cumm (4.4-10.8) D 05/23/18 06:01 RBC 4.40 m/cumm (4.50-6.00) L 05/23/18 06:01 Hgb 13.7 g/dL (13.5-17.5) 05/23/18 06:01 Hct 40.5 % (40.0-50.0) 05/23/18 06:01 MCV 92.0 fL (80-95) 05/23/18 06:01 MCH 31.1 pg (27.0-33.0) 05/23/18 06:01 MCHC 33.8 g/dL (32.0-36.0) 05/23/18 06:01 RDW 13.2 % (11.8-14.1) 05/23/18 06:01 Plt Count 143 x1000/uL (130-400) 05/23/18 06:01 MPV 10.4 fL (8.0-11.0) 05/23/18 06:01 Immature Gran % 0.2 05/23/18 06:01 Neutrophils % 54.3 05/23/18 06:01 Lymphocytes % 33.4 05/23/18 06:01 Monocytes % 6.7 05/23/18 06:01 Eosinophils % 5.2 05/23/18 06:01 Basophils % 0.2 05/23/18 06:01 Absolute Neutrophils 2.42 k/cumm (1.2-6.7) 05/23/18 06:01 Absolute Lymphocytes 1.49 k/cumm (1.2-3.4) 05/23/18 06:01 Absolute Monocytes 0.30 k/cumm (0.11-0.7) 05/23/18 06:01 Absolute Eosinophils 0.23 k/cumm (0.0-0.7) 05/23/18 06:01 Absolute Basophils 0.01 k/cumm (0.0-0.2) 05/23/18 06:01 PT 9.6 sec (9.3-10.8) 05/18/18 07:38 INR 1.0 (1.0-3.5) 05/18/18 07:38 Sodium 139 mmol/L (136-145) 05/23/18 06:01 Potassium 3.7 mmol/L (3.5-5.1) 05/23/18 06:01 Chloride 99 mmol/L (98-107) 05/23/18 06:01 Carbon Dioxide 27.9 mmol/L (21.0-32.0) 05/23/18 06:01 Anion Gap 12.1 mmol/L (3-11) H 05/23/18 06:01 BUN 7 mg/dL (7-18) 05/23/18 06:01 Creatinine 1.18 mg/dL (0.70-1.30) 05/23/18 06:01 Estimated GFR/1.73 m2 >= 60.00 (mL/min/1.73m2) 05/23/18 06:01 Glucose 83 mg/dL (70-100) 05/23/18 06:01 Calcium 8.4 mg/dL (8.5-10.1) L 05/23/18 06:01 Phosphorus 3.7 mg/dL (2.6-4.7) 05/18/18 06:29 Magnesium 1.9 mg/dL (1.8-2.4) 05/23/18 06:01 Total Bilirubin 1.2 mg/dL (0.2-1.0) H 05/23/18 06:01 Conjugated Bilirubin 0.32 mg/dL (0.00-0.20) H 05/23/18 06:01 AST 35 U/L (15-37) 05/23/18 06:01 ALT 76 U/L (12-78) 05/23/18 06:01 Alkaline Phosphatase 90 U/L (46-116) 05/23/18 06:01 Troponin I < 0.02 ng/mL (0.00-0.06) 05/18/18 06:29 Total Protein 7.1 g/dL (6.4-8.2) 05/23/18 06:01 Albumin 3.6 g/dL (3.4-5.0) 05/23/18 06:01 Lipase 925 U/L (73-393) H 05/18/18 06:29 TSH 1.63 uIU/mL (0.358-3.74) 05/17/18 17:15 Urine Color Yellow (Yellow) 05/17/18 17:45 Urine Clarity Clear 05/17/18 17:45 Urine pH 6.0 (5-8) 05/17/18 17:45 Ur Specific [place] <= 1.005 (1.005-1.025) 05/17/18 17:45 Urine Protein Negative mg/dL (Negative) 05/17/18 17:45 Urine Ketones Negative mg/dL (Negative) 05/17/18 17:45 Urine Blood Small (Negative) H 05/17/18 17:45 Urine Nitrite Negative (Negative) 05/17/18 17:45 Urine Bilirubin Negative (Negative) 05/17/18 17:45 Urine Urobilinogen 1.0 EU/dL (Up TO 0.2) H 05/17/18 17:45 Ur Leukocyte Esterase Negative (Negative) 05/17/18 17:45 Urine RBC 0-2 (0-2) 05/17/18 17:45 Urine WBC Negative HPF (0-5) 05/17/18 17:45 Ur Epithelial Cells Negative HPF (Negative) 05/17/18 17:45 Urine Crystals Negative HPF (Negative) 05/17/18 17:45 Urine Bacteria Negative HPF (Negative) 05/17/18 17:45 Urine Casts Negative LPF (Negative) 05/17/18 17:45 Urine Mucus Negative (Negative) 05/17/18 17:45 Urine Other Negative (Negative) 05/17/18 17:45 Ur Culture Indicated? No 05/17/18 17:45 Urine Glucose Negative mg/dL (Negative) 05/17/18 17:45 Urine Opiates Screen Negative (Negative) 05/17/18 17:45 Urine Methadone Screen Negative (Negative) 05/17/18 17:45 Ur Barbiturates Screen Negative (Negative) 05/17/18 17:45 Ur Tricyclics Screen Negative (Negative) 05/17/18 17:45 Ur Amphetamines Screen Negative (Negative) 05/17/18 17:45 U Benzodiazepines Scrn Negative (Negative) 05/17/18 17:45 Urine Cocaine Screen Negative (Negative) 05/17/18 17:45 Ur THC Screen Negative (Negative) 05/17/18 17:45 Ethyl Alcohol 28.9 mg/dL (<3) 05/18/18 06:29
[2018-05-25] MEDS: Pantoprazole 40 MG VIAL IVP (21:27)
[2018-05-25] MEDS: Ketorolac 30 MG/ML VIAL IVP (21:28)
[2018-05-25] MEDS: Zolpidem 10 MG TAB PO (21:29)
[2018-05-25 21:52] VITALS: BP 137/77; PULSE 57; RESP 17; TEMP 36.9; O2SAT 97
[2018-05-26] MEDS: HYDROmorphone 4 MG TAB PO ×3 (05:14→09:58)
[2018-05-26] MEDS: Acetaminophen 500 MG TAB 1000 MG PO (05:14)
[2018-05-26 06:57] LABS: Abs Immature Grans 0.01 k/cumm (0.0-0.09); Absolute Basophil Count 0.01 k/cumm (0.0-0.2); Absolute Eosinophil Count 0.16 k/cumm (0.0-0.7); Absolute Lymphocyte Count 1.35 k/cumm (1.2-3.4); Absolute Monocyte Count 0.32 k/cumm (0.11-0.7); Absolute Neutrophil Count 1.86 k/cumm (1.2-6.7); Basophils % 0.3; Eosinophils % 4.3; HCT 41.5 % (40.0-50.0); HGB 14.1 g/dL (13.5-17.5); Immature Grans % 0.3; Lymphocytes % 36.4; Mean Corpuscular Hemoglobin 30.9 pg (27.0-33.0); Mean Corpuscular Volume 90.8 fL (80-95); Mean Platelet Volume 10.9 fL (8.0-11.0); Monocytes % 8.6; Neutrophils % 50.1; Platelet Count 157 x1000/uL (130-400); RBC 4.57 m/cumm (4.50-6.00); RBC Distribution Width 13.3 % (11.8-14.1); White Blood Cell Count 3.71 k/cumm (4.4-10.8)
[2018-05-26 07:12] LABS: ALT 44 U/L (12-78); AST 15 U/L (15-37); Albumin 3.4 g/dL (3.4-5.0); Alkaline Phosphatase 84 U/L (46-116); Anion Gap 10.4 mmol/L (3-11); BUN 16 mg/dL (7-18); Bilirubin, Total 0.6 mg/dL (0.2-1.0); CO2 24.6 mmol/L (21.0-32.0); CREATININE 0.99 mg/dL (0.70-1.30); Calcium 8.6 mg/dL (8.5-10.1); Chloride 102 mmol/L (98-107); Glucose 99 mg/dL (70-100); Lipase 266 U/L (73-393); Potassium 3.7 mmol/L (3.5-5.1); Sodium 137 mmol/L (136-145); Total Protein 6.9 g/dL (6.4-8.2)
[2018-05-26 07:35] VITALS: BP 134/87; PULSE 63; RESP 19; TEMP 36.7; O2SAT 99
[2018-05-26] MEDS: Tamsulosin 0.4 MG CAPCR 0.8 MG PO (07:54)
[2018-05-26] MEDS: Docusate Sodium 100 MG CAP PO (07:54)
[2018-05-26] MEDS: buPROPion-XL 150 MG TABCR PO (07:54)
[2018-05-26] MEDS: Magnesium Oxide 400 MG TAB PO (09:19)
[2018-05-26] MEDS: Normal Saline Flush 10 ML SYR IVP (09:19)
[2018-05-26] MEDS: Ketorolac 30 MG/ML VIAL IVP (09:19)
[2018-05-26] MEDS: POTASSIUM CHLORIDE 20 MEQ, POTASSIUM CHLORIDE 10 MEQ 30 MEQ PO (09:19)
--- NOTE | 2018-05-26 12:19 | DSE_ITS ---
Date of service: 05/26/18 Time of Service: 11:59 DS: Diagnosis Discharge Diagnosis (1) Acute alcoholic pancreatitis: Status: Acute (2) History of narcotic addiction: Status: Chronic (3) Alcoholism: Status: Chronic (4) Transaminitis: Status: Acute (5) Anxiety: Status: Chronic Discharge Plan Disposition Patient Disposition: HOME Condition: Serious Discharge Details Reason For Visit: ACUTE PANCREATITIS,ACUTE ALCOHOL INTOXICATION Admit Date/Time: 05/17/18 20:31 Admit Provider: To [place] Attending Provider: To [place] Primary Care Provider: Alexis Carlos Hospital Course Hospital Course: CC: Intoxicated, found in [place]. Acute Pancreatitis. HPI: 53 year old man with a prior history of alcohol and narcotic abuse on suboxone therapy and previously in AA, reportedly drinking heavily for the week prior to his admission. The patient left home around 11 a.m. to purchase alcohol but did not return. When she went to find him [facility] status and suspected of being intoxicated. He was brought by EMS to the emergency room at [facility] where workup revealed that he has acute pancreatitis w/ lipase of 5671 and acute alcoholic transaminitis w/ An AST of 544 and an ALT of 240 and alkaline phosphatase of 145. He was also found to be acutely intoxicated with a blood alcohol level of 382. CT of his abdomen and pelvis with IV contrast demonstrate mild edema surrounding the pancreatic head and distal duodenum consistent with pancreatitis, and possibly mild esophagitis by imaging. He was at that time referred for admission for further evaluation and treatment. Hospital Course: (1) Acute alcoholic pancreatitis: Presumed alcoholic in nature, appears resolved both radiographically by repeat CT on 05/22 as well as by repeat Lipase this morning. Patient with reported continued epigastric pain, though he is tolerating oral intake - reportedly ate a pizza last night, and his am lipase is well within normal limits after an initial value of 5671. Pain is also reportedly better. Was also apparently requesting continued IV Narcotics. Patient is on chronic Suboxone, making pain management somewhat difficult during his hospital course per review of other provider's notes. No evidence of overt opioid withdrawal. Recommend continued slow progression in diet, and close follow-up as outpatient. (2) History of narcotic addiction: Will continue Suboxone at time of discharge. No oral narcotics being prescribed. (3) Alcoholism: With evidence of withdrawl based on high CIWA scores, now resolved as well. Currently requesting but not receiving any benzodiazepines. No further signs of alcohol withdrawal. Patient with plans for AA and therapy follow-up and has declined inpatient rehabilitation. (4) GERD (gastroesophageal reflux disease): Continue PPI (5) Urinary retention: Successful voiding trial. Continue home regimen of Tamsulosin and Finasteride. (6) Anxiety Potential for lifelong KLEBER based on conversation, with spouse reporting a prior history of PTSD as well. Currently on bupropion. Recommended reattempt at SSRI or SNRI therapy - per case management discussion with PCP office patient will be initiated on daily Sertraline at time of discharge, with prn buspar as opposed to further benzo therapy. Home Meds and New Rx's Prescriptions: New sertraline 50 mg tablet 50 mg PO DAILY Qty: 30 RF: 0 buspirone 7.5 mg tablet 7.5 mg PO BID Qty: 28 RF: 0 Continue zolpidem 10 MG tablet 10 mg PO HS PRN RF: 0 montelukast 10 MG tablet 10 mg PO RF: 0 testosterone cypionate 200 MG/1 ML oil 200 mg IM RF: 0 fluticasone 16 GM spray,suspension 16 gm NS RF: 0 finasteride 5 MG tablet 5 mg PO DAILY Qty: 30 RF: 12 tamsulosin [Flomax] 0.4 MG capsule 0.8 mg PO DAILY RF: 0 bupropion HCl [Wellbutrin XL] 150 mg Tablet Extended Release 24 Hr 150 mg PO DAILY RF: 0 buprenorphine-naloxone [Suboxone] 8-2 mg Film 8 tab SUBLINGUAL DAILY RF: 0 No Action pantoprazole [Protonix] 20 MG tablet,delayed release (DR/EC) 20 mg PO DAILY RF: 0 prednisone 20 MG tablet 60 mg PO DAILY 5 Days RF: 0 Discharge Instructions Instructions: Pancreatitis (DC), Abuse of Alcohol (DC) Additional Instructions: Please see your PCP within 1 week of discharge. Strongly recommend you touch base with your sponsor and restart AA meetings as discussed. Stand Alone Forms: Nursing Discharge Form Referrals: Alexis Carlos MD [Primary Care Provider] - 06/08/18 11:25 am Activity:: No Strenuous Activity Equipment/Supplies:: No Equipment Needed Diet:: As Tolerated DS: Data Vitals/I&O Vitals and I&O: Vital Signs Temperature 36.7 C 05/26/18 07:35 Temperature Source Tympanic 05/26/18 07:35 Pulse 63 05/26/18 07:35 Pulse Rhythm Regular 05/26/18 08:41 Pulse 65 05/24/18 10:00 Respiratory Rate 19 05/26/18 07:35 Respiratory Effort Non-Labored 05/26/18 08:41 Respiratory Depth Normal 05/26/18 08:41 Respiratory Pattern Normal 05/26/18 08:41 Blood Pressure 134/87 05/26/18 07:35 Blood Pressure Mean 102 05/24/18 12:10 Blood Pressure Position Supine 05/23/18 20:15 Pulse Oximetry 99 05/26/18 07:35 Oxygen Delivery Method Room Air 05/26/18 07:35 Oxygen Flow Rate 0 05/26/18 07:35 Pain Level 6 05/26/18 09:58 Comment 05/25/18 07:45 Intake & Output 05/25/18 05/25/18 05/26/18 11:59 23:59 11:59 Intake Total 1810 / 1810 1161.0 / 1161.0 490 / 490 Balance 1810 / 1810 1161.0 / 1161.0 490 / 490 Weight 86.5 kg Intake: IV 1020 / 1020 131.0 / 131.0 Oral 790 / 790 1030 / 1030 490 / 490 Other: Comment Void x1 in the toilet. Pt voids independently, urine not viewed. Denies problems or abnormalities Voiding Methods Toilet Toilet Toilet Completed studies during hospitalization [Text1]: Exam(s) a CT:CT abdomen & pelvis w SYMPTOM/DIAGNOSIS: PAIN IN EPIGASTRIC AND RUQ CT ABDOMEN AND PELVIS: CT scan of the abdomen and pelvis was performed following the uneventful administration of intravenous contrast material. No priors for comparison. The visualized lung bases are free of acute infiltrates. There is diffuse decreased attenuation of the liver consistent with fatty infiltration. No suspicious hepatic mass is seen. The patient is status post cholecystectomy. No biliary ductal dilatation is present. The portal and superior mesenteric veins are patent. There is mild increased attenuation surrounding the head of the pancreas and proximal duodenum There is mild prominence of the pancreatic duct in the proximal pancreas. No pancreatic mass is seen. No peripancreatic fluid collections are appreciated. The spleen and adrenal glands are unremarkable The kidneys show normal and symmetric enhancement. There are left renal cysts. No calculi are identified. The urinary bladder is markedly distended. There is mild dilatation of the collecting system likely reflecting the enlarged urinary bladder. No definite hydronephrosis is seen. The reproductive organs are grossly unremarkable. The abdominal aorta is of normal caliber. No significant or pelvic adenopathy, ascites, or pneumoperitoneum is present. There is a moderate amount of retained stool throughout the colon. No evidence of bowel obstruction seen. No findings to suggest an acute appendicitis are present. The bones are intact. IMPRESSION: 1. Mild edema seen surrounding the pancreatic head and proximal duodenum, likely reflecting acute pancreatitis. Please correlate clinically. 2. Marked distension of the urinary bladder without orly hydronephrosis 3. Thickening of the wall of the distal esophagus. Esophagitis cannot be excluded. This may also reflect a decompressed distal esophagus. Please correlate clinically. 4. Mild prominence of the distal esophageal wall. Esophagitis vs decompressed esophagus. ----- Exam(s) a CT:CT head wo SYMPTOM/DIAGNOSIS: ALTERED MENTATION CT BRAIN: Noncontrast examination. No priors. There is a normal haas/white matter differentiation. The ventricles are intact. The basilar cisterns are patent. No evidence of an acute infarct, intracranial hemorrhage, midline shift or mass effect is identified. There is mild mucosal thickening in the ethmoid air cells and sphenoid sinuses. No fluid levels are seen. The mastoid air cells are well pneumatized. The calvarium is intact. IMPRESSION: No acute intracranial process. ----- Exam(s) a MRI:MR abdmon SYMPTOM/DIAGNOSIS: PANCREATITIS MRCP: Routine noncontrast examination was performed. The intra and extrahepatic bile ducts are of normal caliber. No filling defects are seen to suggest a retained stone. The patient is status post cholecystectomy. The pancreatic duct has a normal appearance. Note is made of left renal cysts. These can be seen on the CT scan from . The pancreas appears grossly unremarkable on this noncontrast examination. No peripancreatic fluid collection is identified. The visualized portions of the liver are unremarkable. IMPRESSION: 1. Status post cholecystectomy. 2. No evidence of choledocholithiasis or biliary ductal dilatation. ----- CT SCAN OF THE ABDOMEN: CT scan of the abdomen was performed following the uneventful administration of intravenous contrast and oral contrast material. Comparison CT scan is 05/17/18. No acute findings are seen in the lung bases. The liver is normal in size. No hepatic mass is seen. The patient is status post cholecystectomy. No biliary ductal dilatation is seen. The pancreas and peripancreatic soft tissues are unremarkable. No peripancreatic fluid collections are seen. The edema seen previously around the head of the pancreas has resolved. The adrenal glands are unremarkable as is the spleen. There are left renal cysts again noted. The kidneys show normal and symmetric enhancement. No suspicious solid renal masses or obstruction is identified. The aorta is of normal caliber. No significant abdominal adenopathy, ascites or pneumoperitoneum is present. The bowel shows no evidence of obstruction or inflammation. Degenerative changes are seen in the spine. IMPRESSION: 1. By CT scan resolution of the peripancreatic edema. No peripancreatic inflammatory changes or fluid collections are seen. There is no biliary ductal dilatation. 2. No evidence of pneumoperitoneum or ascites. 3. Status post cholecystectomy. Labs on day of discharge: Labs from last 24 hours 05/26/18 05/26/18 06:20 06:20 WBC 3.71 L RBC 4.57 Hgb 14.1 Hct 41.5 MCV 90.8 MCH 30.9 MCHC 34.0 RDW 13.3 Plt Count 157 MPV 10.9 Immature Gran % 0.3 Neutrophils % 50.1 Lymphocytes % 36.4 Monocytes % 8.6 Eosinophils % 4.3 Basophils % 0.3 Absolute Neutrophils 1.86 Absolute Lymphocytes 1.35 Absolute Monocytes 0.32 Absolute Eosinophils 0.16 Absolute Basophils 0.01 Sodium 137 Potassium 3.7 Chloride 102 Carbon Dioxide 24.6 Anion Gap 10.4 BUN 16 Creatinine 0.99 Estimated GFR/1.73 m2 >= 60.00 Glucose 99 Calcium 8.6 Total Bilirubin 0.6 AST 15 ALT 44 Alkaline Phosphatase 84 Total Protein 6.9 Albumin 3.4 Lipase 266
--- NOTE | 2018-05-26 12:29 | PDOC.CMDIS ---
- If Service Date Differs Date of service: 05/26/18 Time of Service: 12:29 LACE Index Scoring Tool - Questions: Length of Stay (in days): 7 - 13 Acuity (Admit via E.D.?): Yes Care Management Discharge Reason for Hospitalization: Acute pancreatitis, acute etoh withdrawal Discharge Plan: Danie will be discharged home today. CM contacted [facility], Danie's appointment is on the 06/08/18. He would like to meet with sooner he states that he would like Ativan for his anxiety. recomends starting sertraline at time of discharge. CM communincated recomendation to . Danie will follow up with therapist in the community. He will plan to contact his sponser for AA and attend meetings as an outpatient. He denies inpatient substance abuse treatment and IOP. CM provided list of online meetings in addtional to contact information for and the recovery house. Feli Sanchez [facility] did meet with Danie today and brought him his Suboxone presciption which he will have filled at [facility]. Danie spouse is here with him during education and discharge discussion she understands the plan and will be transporting [place]ley home at time of discharge. Patient/Family Education Needs: Discharge education, limitations, medications and treatment plan. Including substance abuse resources and treatment options. Plan for managing pain and anxiety at time of discharge. - MH Services (Omit if N/A) Current MH Services: Other
--- NOTE | 2018-05-26 12:54 | CMDISCH_ITS ---
- If Service Date Differs Date of service: 05/26/18 Time of Service: 12:29 LACE Index Scoring Tool - Questions: Length of Stay (in days): 7 - 13 Acuity (Admit via E.D.?): Yes Care Management Discharge Reason for Hospitalization: Acute pancreatitis, acute etoh withdrawal Discharge Plan: Danie will be discharged home today. CM contacted [facility], Danie's appointment is on the 06/08/18. He would like to meet with sooner he states that he would like Ativan for his anxiety. recomends starting sertraline at time of discharge. CM communincated recomendation to . Danie will follow up with therapist in the community. He will plan to contact his sponser for AA and attend meetings as an outpatient. He denies inpatient substance abuse treatment and IOP. CM provided list of online meetings in addtional to contact information for and the recovery house. Feli Sanchez [facility] did meet with Danie today and brought him his Suboxone presciption which he will have filled at [facility]. Danie spouse is here with him during education and discharge discussion she understands the plan and will be transporting [place] home at time of discharge. Patient/Family Education Needs: Discharge education, limitations, medications and treatment plan. Including substance abuse resources and treatment options. Plan for managing pain and anxiety at time of discharge. - MH Services (Omit if N/A) Current MH Services: Other
[2018-06-09 12:50] LABS: HIT Interpretation Negative
== END 2018-05-26 13:11 | disposition home or self-care (01) | DRG 439 ==
LOC: ER 20:42 → ICU 21:48 → MS 05-24 15:57 → ICU 06-17 14:48
PROVIDERS: Family Medicine; Internal Medicine; Admitting Provider Internal Medicine; Emergency Provider Student in an Organized Health Care Education/Training Program; PCP Internal Medicine; Visit Provider Internal Medicine
DX: K85.20 Alcohol induced acute pancreatitis without necrosis or infection (principal); F11.23 Opioid dependence with withdrawal; F10.230 Alcohol dependence with withdrawal, uncomplicated; F10.120 Alcohol abuse with intoxication, uncomplicated; Y90.8 Blood alcohol level of 240 mg/100 ml or more; K70.10 Alcoholic hepatitis without ascites; R74.0 Nonspecific elevation of levels of transaminase and lactic acid dehydrogenase [LDH]; F10.220 Alcohol dependence with intoxication, uncomplicated; K21.9 Gastro-esophageal reflux disease without esophagitis; R33.8 Other retention of urine; F41.1 Generalized anxiety disorder; D69.6 Thrombocytopenia, unspecified
CPT/HCPCS: 36415; 80048; 80053; 80076; 80307; 83690; 86022; 96361; 96365; 96375; 99222; 99232; 99233; 99239; 99285; J1650; 70450; 74160; 74177; 74181; 80320; 81003; 81015; 83735; 84100; 84443; 84484; 85025; 85610; J1885; J2060; J2270; J3475; J3490

== ENCOUNTER 2018-09-11 09:30 | Outpatient (REF) | payer BC, SELFPAY ==
[2018-09-15 09:35] LABS: Buprenorphine 90.5 ng/mL; Norbuprenorphine 507.6 ng/mL
[2018-09-16 05:39] LABS: Benzoylecgonine Negative ng/mL (Cutoff: 50); Cocaine Negative ng/mL (Cutoff: 50); Cocaine Interpretation Negative.
[2018-09-25 09:11] LABS: Clomipramine NEGATIVE; Desmethylclomipramine NEGATIVE; Desmethylsertraline 60 ng/mL; Nortriptyline NEGATIVE
== END 2018-09-11 09:50 ==
LOC: NCHCN 09:30
PROVIDERS: PCP Internal Medicine; Visit Provider Internal Medicine
DX: F11.20 Opioid dependence, uncomplicated (principal); F19.10 Other psychoactive substance abuse, uncomplicated
CPT/HCPCS: 80307; 80324; 80333; 80349; 80360; 80361; 82542; 80345; 80346; 80353; 80358; 83992

== ENCOUNTER 2018-12-04 19:25 | Outpatient (REF) | payer BC, SELFPAY ==
[2018-12-04 19:34] LABS: HCT 43.2 % (40.0-50.0); HGB 14.4 g/dL (13.5-17.5); Mean Corp. HGB Concentration 33.3 g/dL (32.0-36.0); Mean Corpuscular Hemoglobin 30.3 pg (27.0-33.0); Mean Corpuscular Volume 90.8 fL (80-95); Mean Platelet Volume 12.2 fL (8.0-11.0); Platelet Count 169 x1000/uL (130-400); RBC 4.76 m/cumm (4.50-6.00); RBC Distribution Width 12.7 % (11.8-14.1); White Blood Cell Count 4.21 k/cumm (4.4-10.8)
[2018-12-04 20:03] LABS: ALT 24 U/L (12-78); AST 14 U/L (15-37); Albumin 3.8 g/dL (3.4-5.0); Alkaline Phosphatase 69 U/L (46-116); Anion Gap 9.3 mmol/L (3-11); BUN 17 mg/dL (7-18); Bilirubin, Total 0.5 mg/dL (0.2-1.0); CO2 26.7 mmol/L (21.0-32.0); CREATININE 0.94 mg/dL (0.70-1.30); Calcium 8.9 mg/dL (8.5-10.1); Chloride 104 mmol/L (98-107); Glucose 86 mg/dL (70-100); Lipase 182 U/L (73-393); Potassium 4.5 mmol/L (3.5-5.1); Sodium 140 mmol/L (136-145); Total Protein 6.9 g/dL (6.4-8.2)
== END 2018-12-04 19:45 ==
LOC: NCHCN 19:25
PROVIDERS: PCP Internal Medicine; Visit Provider Family Medicine
DX: R10.84 Generalized abdominal pain (principal)
CPT/HCPCS: 80053; 83690; 85027

== ENCOUNTER 2019-03-25 15:44 | Outpatient (REF) | payer BC, SELFPAY ==
[2019-03-25 21:49] LABS: ALT 51 U/L (16-63); AST 25 U/L (15-37); Albumin 3.8 g/dL (3.4-5.0); Alkaline Phosphatase 88 U/L (46-116); BUN 19 mg/dL (7-18); Bilirubin, Total 0.5 mg/dL (0.2-1.0); C-Reactive Protein 0.74 mg/dL (0.0-0.3); CREATININE 1.01 mg/dL (0.70-1.30); Calcium 8.3 mg/dL (8.5-10.1); Chloride 107 mmol/L (98-107); Glucose 110 mg/dL (70-100); Lipase 205 U/L (73-393); Sodium 142 mmol/L (136-145); Total Protein 6.8 g/dL (6.4-8.2)
[2019-03-25 21:58] LABS: HCT 39.4 % (40.0-50.0); HGB 13.2 g/dL (13.5-17.5); Mean Corp. HGB Concentration 33.5 g/dL (32.0-36.0); Mean Corpuscular Hemoglobin 30.6 pg (27.0-33.0); Mean Corpuscular Volume 91.2 fL (80-95); Mean Platelet Volume 12.2 fL (8.0-11.0); Platelet Count 160 x1000/uL (130-400); RBC 4.32 m/cumm (4.50-6.00); RBC Distribution Width 12.3 % (11.8-14.1); White Blood Cell Count 4.46 k/cumm (4.4-10.8)
[2019-03-25 22:49] LABS: ESR 13 mm/hr (1-20)
== END 2019-03-25 16:04 ==
LOC: NCHCN 15:44
PROVIDERS: PCP Internal Medicine; Visit Provider Internal Medicine
DX: R10.9 Unspecified abdominal pain (principal); F41.8 Other specified anxiety disorders
CPT/HCPCS: 80053; 83690; 85027; 85652; 86140

== ENCOUNTER 2019-06-14 08:20 | Outpatient (REF) | payer BC, SELFPAY ==
[2019-06-14 12:44] LABS: Bilirubin Negative (Negative); Blood Negative (Negative); Clarity Clear (Clear); Glucose Negative (Negative); Ketones Negative (Negative); Leukocyte Esterase Negative (Negative); Nitrite Negative (Negative); Specific Gravity 1.025 (1.005-1.025); Urobilinogen 0.2 EU/dL (Up TO 0.2)
== END 2019-06-14 08:40 ==
LOC: LBN 08:20
PROVIDERS: PCP Internal Medicine; Visit Provider Urology
DX: R35.0 Frequency of micturition (principal)
CPT/HCPCS: 81003

== ENCOUNTER 2019-09-24 20:52 | Outpatient (REF) | payer BC, SELFPAY ==
[2019-09-27 10:15] LABS: PSA, Screening 1.1 ng/mL (0.0-3.5)
[2019-09-30 14:47] LABS: Testosterone, Free 5.41 ng/dL (3.87-14.7); Testosterone, Total 451 ng/dL (240-950)
== END 2019-09-24 21:12 ==
LOC: NCHCN 20:52
PROVIDERS: PCP Internal Medicine; Visit Provider Internal Medicine
DX: E25.0 Congenital adrenogenital disorders associated with enzyme deficiency (principal); Z12.5 Encounter for screening for malignant neoplasm of prostate
CPT/HCPCS: 84153; 84402; 84403

== ENCOUNTER 2020-01-10 13:08 | Outpatient (REF) | payer BC, SELFPAY ==
[2020-01-15 09:33] LABS: Testosterone, Free 22.2 ng/dL (3.87-14.7); Testosterone, Total 1110 ng/dL (240-950)
== END 2020-01-10 13:28 ==
LOC: NCHCN 13:08
PROVIDERS: PCP Internal Medicine; Visit Provider Internal Medicine
DX: E23.0 Hypopituitarism (principal)
CPT/HCPCS: 84402; 84403

== ENCOUNTER 2020-05-08 11:58 | Outpatient (REF) | payer BC, SELFPAY ==
[2020-05-08 21:22] LABS: ALT 19 U/L (16-63); AST 39 U/L (15-37); Albumin 3.8 g/dL (3.4-5.0); Alkaline Phosphatase 78 U/L (46-116); Anion Gap 7.3 mmol/L (3-11); BUN 17 mg/dL (7-18); CO2 26.7 mmol/L (21.0-32.0); CREATININE 0.98 mg/dL (0.70-1.30); Calcium 8.7 mg/dL (8.5-10.1); Calculated LDL 111 mg/dL (<100); Chloride 105 mmol/L (98-107); Cholesterol 199 mg/dL (<200); Glucose 93 mg/dL (74-106); HDL Cholesterol 54 mg/dL (40-60); Potassium 4.8 mmol/L (3.5-5.1); Sodium 139 mmol/L (136-145); Total Protein 7.1 g/dL (6.4-8.2); Triglyceride 174 mg/dL (<150)
[2020-05-08 21:36] LABS: Bilirubin, Total 0.5 mg/dL (0.2-1.0)
[2020-05-11 17:05] LABS: Testosterone, Free 8.93 ng/dL (3.87-14.7); Testosterone, Total 558 ng/dL (240-950)
== END 2020-05-08 12:18 ==
LOC: NCHCN 11:58
PROVIDERS: PCP Internal Medicine; Visit Provider Internal Medicine
DX: E78.5 Hyperlipidemia, unspecified (principal); F10.21 Alcohol dependence, in remission; F41.8 Other specified anxiety disorders; E23.0 Hypopituitarism
CPT/HCPCS: 80053; 80061; 84402; 84403

== ENCOUNTER 2022-05-06 14:25 | Outpatient (REF) | payer BC, SELFPAY ==
[2022-05-06 15:44] LABS: ALT 45 U/L (16-63); AST 22 U/L (15-37); Albumin 3.6 g/dL (3.4-5.0); Alkaline Phosphatase 151 U/L (46-116); Anion Gap 6.6 mmol/L (3-11); BUN 16 mg/dL (7-18); Bilirubin, Total 0.5 mg/dL (0.2-1.0); CO2 30.4 mmol/L (21.0-32.0); CREATININE 0.9 mg/dL (0.70-1.30); Calcium 8.9 mg/dL (8.5-10.1); Chloride 103 mmol/L (98-107); Glucose 103 mg/dL (74-106); Lipase 101 U/L (73-393); Potassium 4.6 mmol/L (3.5-5.1); Sodium 140 mmol/L (136-145); Total Protein 6.7 g/dL (6.4-8.2)
[2022-05-10 15:15] LABS: Testosterone, Total 942 ng/dL (240-950)
== END 2022-05-06 14:26 | disposition home or self-care (01) ==
LOC: NCHCN 14:25
PROVIDERS: PCP Internal Medicine; Visit Provider Internal Medicine
DX: R10.12 Left upper quadrant pain (principal); E23.0 Hypopituitarism
CPT/HCPCS: 80053; 83690; 84403

== ENCOUNTER 2023-07-24 14:21 | Outpatient (REF) | payer BC, SELFPAY ==
[2023-07-24 17:39] LABS: *AMPHETAMINES SCREEN URINE Negative (Negative); *BARBITURATES SCREEN URINE Negative (Negative); *BENZODIAZEPINES SCREEN URINE Positive (Negative); Cannabinoids THC Positive (Negative); Cocaine Screen,Urine Negative (Negative); METHADONE URINE SCREEN Negative (Negative); OPIATES URINE SCREEN Negative (Negative)
[2023-07-24 17:41] LABS: Tricyclic Antidepressants Negative (Negative)
== END 2023-07-24 14:22 | disposition home or self-care (01) ==
LOC: NCHCN 14:21
PROVIDERS: Family Medicine; PCP Internal Medicine; Visit Provider Internal Medicine
DX: F11.20 Opioid dependence, uncomplicated (principal)
CPT/HCPCS: 80307

== ENCOUNTER 2024-06-08 16:38 | Outpatient (REF) | payer BC, SELFPAY ==
[2024-06-08 15:31] LABS: ALT 17 U/L (16-63); AST 15 U/L (15-37); Albumin 3.9 g/dL (3.4-5.0); Alkaline Phosphatase 79 U/L (46-116); Anion Gap 6.4 mmol/L (3-11); BUN 18 mg/dL (7-18); Bilirubin, Total 0.66 mg/dL (0.2-1.0); CO2 28.6 mmol/L (21.0-32.0); Calculated LDL 118 mg/dL (<100); Chloride 103 mmol/L (98-107); Cholesterol 203 mg/dL (<200); Estimated GFR 86.16 (mL/min/1.73m2); Glucose 90 mg/dL (74-106); HDL Cholesterol 71 mg/dL (40-60); Potassium 4.4 mmol/L (3.5-5.1); Sodium 138 mmol/L (136-145); Total Protein 7.4 g/dL (6.4-8.2); Triglyceride 71 mg/dL (<150)
[2024-06-08 21:44] LABS: PSA, Screening 0.5 ng/mL (<=4.5)
[2024-06-12 10:16] LABS: Testosterone, Total 455 ng/dL (240-950)
== END 2024-06-08 16:39 | disposition home or self-care (01) ==
LOC: NCHCN 16:38
PROVIDERS: PCP Internal Medicine; Visit Provider Family Medicine
DX: Z00.00 Encounter for general adult medical examination without abnormal findings (principal); Z12.5 Encounter for screening for malignant neoplasm of prostate; E23.0 Hypopituitarism
CPT/HCPCS: 80053; 80061; 84153; 84403

== ENCOUNTER 2025-06-02 12:38 | Outpatient (REF) | payer BC, SELFPAY ==
[2025-06-02 15:22] LABS: HCT 37.3 % (40.0-50.0); HGB 12.3 g/dL (13.5-17.5); MCH 29.5 pg (27.0-33.0); MCHC 33.0 % (32.0-36.0); MCV 89 fL (80-95); MPV 11.3 fL (8.0-11.0); Platelet Count 168 10^3/uL (130-400); RBC 4.17 10^6/uL (4.36-5.78); RDW 12.5 % (11.8-14.1); RDW-SD 41.1 fL; WBC 5.23 10^3/uL (4.4-10.8)
[2025-06-02 15:50] LABS: ALT 16 U/L (10-49); AST 18 U/L (<34); Albumin 4.0 g/dL (3.4-5.0); Alkaline Phosphatase 83 U/L (46-116); Anion Gap 6.6 mmol/L (3-11); BUN 20 mg/dL (9-23); Bilirubin, Total 0.50 mg/dL (0.2-1.2); CO2 29.4 mmol/L (20.0-31.0); Calcium 9.1 mg/dL (8.3-10.6); Chloride 104 mmol/L (98-107); Glucose 90 mg/dL (74-106); Potassium 4.8 mmol/L (3.5-5.1); Sodium 140 mmol/L (136-145); Total Protein 6.6 g/dL (5.7-8.2)
[2025-06-02 23:15] LABS: PSA, Screening 0.5 ng/mL (<=4.5)
[2025-06-03 13:03] LABS: Iron 102 ug/dL (65-175); Total Iron Binding Capacity 267 ug/dL (250-425); Transferrin Sat 38 % (20-55)
[2025-06-03 13:07] LABS: Vitamin B12 581 pg/mL (211-911)
[2025-06-03 22:40] LABS: Folate 15.5 ng/mL (See Note)
[2025-06-06 11:28] LABS: Ferritin 103 ng/mL (11-307)
[2025-06-08 19:29] LABS: Testosterone, Free 18.4 pg/mL (35.0-155.0)
== END 2025-06-02 12:39 | disposition home or self-care (01) ==
LOC: NCHCN 12:38
PROVIDERS: PCP Family Medicine; Visit Provider Family Medicine
DX: Z00.00 Encounter for general adult medical examination without abnormal findings (principal); E23.0 Hypopituitarism; Z12.5 Encounter for screening for malignant neoplasm of prostate
CPT/HCPCS: 80053; 84153; 84402; 84403; 85027; 82607; 82728; 82746; 83540; 83550